=== PATIENT | female | born 1930 | race Caucasian/White ===

== ENCOUNTER 2017-04-27 17:35 | Inpatient (IN) | payer BC, OTHER ==
[2017-04-27] MEDS ORDERED: FAMOTIDINE 20 MG/50 ML IVPB 20 MG/50 ML MG IVPB ONE ×2 (17:48→18:21)
--- NOTE | 2017-04-27 17:48 | PDOC ---
History of Present Illness - General Stated Complaint: STOMACH PAIN/VOMITING Time Seen by Provider: 04/27/17 17:47
[2017-04-27 18:29] VITALS: BMI 21.4
[2017-04-27 18:36] LABS: BASO % 0.5 % (0-2.0); EOS % 0.3 % (0-4.5); HEMATOCRIT 33.8 % (32.4-45.2); HEMOGLOBIN 11.3 GM/dL (10.7-15.3); LYMPH % 8.5 % (8-40); MCH 30.6 pg (25.7-33.7); MCHC 33.3 g/dl (32.0-36.0); MEAN CELL VOLUME 91.8 fl (80-96); MEAN PLT VOLUME 8.5 fl (7.5-11.1); MONO % 5.7 % (3.8-10.2); PLATELET COUNT 140 K/MM3 (134-434); RBC 3.68 M/mm3 (3.60-5.2); RDW 13.2 % (11.6-15.6); WHITE BLOOD COUNT 8.5 K/mm3 (4.0-10.0)
--- NOTE | 2017-04-27 19:07 | CON.GI ---
Consult Consult Specialty:: Gastroenterology Reason for Consultation:: Abdominal pain - History of Present Illness Chief Complaint: Severe epigastric pain and vomiting History of Present Illness: 86F developed severe sharp epigastric pain about 1 hour after eating a lobster salad for lunch. She has been vomiting repeated to the point of dry heaving. She had several formed BMs today. Senses chills. The pain radiates bilaterally into her flanks. She takes NSAIDs rarely - History Source History Provided By: Patient Limitations to Obtaining History: No Limitations - Past Medical History Cardio/Vascular: Yes: HTN, Hyperlipdemia Renal/: Yes: Renal Calculi - Past Surgical History Past Surgical History: Yes: None - Alcohol/Substance Use Hx Alcohol Use: Yes (rare) - Smoking History Smoking history: Never smoked - Social History Usual Living Arrangement: With Spouse ADL: Independent Place of : Other ([place]) History of Recent Travel: No Home Medications - Allergies Allergies/Adverse Reactions: Allergies Allergy/AdvReac Type Severity Reaction Status Date / Time No Known Allergies Allergy Verified 04/27/17 18:16 - Home Medications Home Medications: Ambulatory Orders Atorvastatin Ca [Lipitor] 0 mg PO HS 04/27/17 Home Medications (free text): take a blood pressure medication every other day but cannot identify it Review of Systems - Review of Systems Constitutional: reports: Chills Eyes: reports: No Symptoms HENT: reports: No Symptoms Neck: reports: No Symptoms Cardiovascular: reports: No Symptoms Respiratory: reports: No Symptoms Gastrointestinal: reports: Abdominal Pain, Vomiting Genitourinary: reports: No Symptoms Musculoskeletal: reports: Back Pain Neurological: reports: No Symptoms Physical Exam-GI Vital Signs: Vital Signs Temperature 98.5 F 04/27/17 18:15 Pulse Rate 60 04/27/17 18:15 Respiratory Rate 18 04/27/17 18:15 Blood Pressure 174/70 04/27/17 18:15 O2 Sat by Pulse Oximetry (%) 100 04/27/17 18:15 CBC,CMP WBC 8.5 K/mm3 (4.0-10.0) 04/27/17 18:18 RBC 3.68 M/mm3 (3.60-5.2) 04/27/17 18:18 Hgb 11.3 GM/dL (10.7-15.3) 04/27/17 18:18 Hct 33.8 % (32.4-45.2) 04/27/17 18:18 MCV 91.8 fl (80-96) 04/27/17 18:18 MCH 30.6 pg (25.7-33.7) 04/27/17 18:18 MCHC 33.3 g/dl (32.0-36.0) 04/27/17 18:18 RDW 13.2 % (11.6-15.6) 04/27/17 18:18 Plt Count 140 K/MM3 (134-434) 04/27/17 18:18 MPV 8.5 fl (7.5-11.1) 04/27/17 18:18 Neutrophils % 85.0 % (42.8-82.8) H 04/27/17 18:18 Lymphocytes % 8.5 % (8-40) 04/27/17 18:18 Monocytes % 5.7 % (3.8-10.2) 04/27/17 18:18 Eosinophils % 0.3 % (0-4.5) 04/27/17 18:18 Basophils % 0.5 % (0-2.0) 04/27/17 18:18 CBC,CMP WBC 8.5 K/mm3 (4.0-10.0) 04/27/17 18:18 RBC 3.68 M/mm3 (3.60-5.2) 04/27/17 18:18 Hgb 11.3 GM/dL (10.7-15.3) 04/27/17 18:18 Hct 33.8 % (32.4-45.2) 04/27/17 18:18 MCV 91.8 fl (80-96) 04/27/17 18:18 MCH 30.6 pg (25.7-33.7) 04/27/17 18:18 MCHC 33.3 g/dl (32.0-36.0) 04/27/17 18:18 RDW 13.2 % (11.6-15.6) 04/27/17 18:18 Plt Count 140 K/MM3 (134-434) 04/27/17 18:18 MPV 8.5 fl (7.5-11.1) 04/27/17 18:18 Neutrophils % 85.0 % (42.8-82.8) H 04/27/17 18:18 Lymphocytes % 8.5 % (8-40) 04/27/17 18:18 Monocytes % 5.7 % (3.8-10.2) 04/27/17 18:18 Eosinophils % 0.3 % (0-4.5) 04/27/17 18:18 Basophils % 0.5 % (0-2.0) 04/27/17 18:18 Sodium 139 mmol/L (136-145) 04/27/17 18:30 Potassium 3.5 mmol/L (3.5-5.1) 04/27/17 18:30 Chloride 103 mmol/L (98-107) 04/27/17 18:30 Carbon Dioxide 28 mmol/L (21-32) 04/27/17 18:30 Anion Gap 8 (8-16) 04/27/17 18:30 BUN 29 mg/dL (7-18) H 04/27/17 18:30 Creatinine 0.8 mg/dL (0.55-1.02) 04/27/17 18:30 Creat Clearance w eGFR > 60 (>60) 04/27/17 18:30 Random Glucose 155 mg/dL (74-106) H 04/27/17 18:30 Calcium 8.6 mg/dL (8.5-10.1) 04/27/17 18:30 Total Bilirubin 0.3 mg/dL (0.2-1.0) 04/27/17 18:30 AST 21 U/L (15-37) 04/27/17 18:30 ALT 15 U/L (12-78) 04/27/17 18:30 Alkaline Phosphatase 68 U/L (45-117) 04/27/17 18:30 Total Protein 6.6 g/dl (6.4-8.2) 04/27/17 18:30 Albumin 3.7 g/dl (3.4-5.0) 04/27/17 18:30 Lipase 202 U/L (73-393) 04/27/17 18:30 Constitutional: Yes: Moderate Distress Eyes: Yes: Conjunctiva Clear HENT: Yes: Normocephalic Neck: Yes: Supple Cardiovascular: Yes: Regular Rate and Rhythm Respiratory: Yes: CTA Bilaterally Gastrointestinal Inspection: Yes: Distention ...Auscultate: Yes: Hypoactive Bowel Sounds ...Palpate: Yes: Guarding, Tenderness (diffusely, worse in epigastrium) ...Rectal Exam: Yes: Guaiac Negative, Sphincter Tone Normal Edema: No Peripheral Pulses WNL: Yes Neurological: Yes: Alert, Oriented Labs: CBC, BMP 04/27/17 18:18 Problem List - Problems (1) Abdominal pain Assessment/Plan: Although the picture of vomiting and pain after eating suggests food poisoning her abdominal findings suggest peritonitis due to a perforated viscus and she requires a stat CT scan ( await chemistries assessing renal function and LFTs). Potential etiologies include a perforated ulcer, diverticulitis, appendicitis, cholecystitis among others. She may alternatively have renal colic. Would keep NPO until CT is read. I discussed the case with Dr. Cuenca Code(s): R10.9 - UNSPECIFIED ABDOMINAL PAIN (2) Vomiting Code(s): R11.10 - VOMITING, UNSPECIFIED (3) History of nephrolithiasis Code(s): Z87.442 - PERSONAL HISTORY OF URINARY CALCULI (4) Hypertension Code(s): I10 - ESSENTIAL (PRIMARY) HYPERTENSION (5) Hyperlipidemia Code(s): E78.5 - HYPERLIPIDEMIA, UNSPECIFIED Assessment/Plan NPO Stat CT scan IV fluids PPI Further recommendations based on CT results
[2017-04-27 19:08] LABS: ALBUMIN 3.7 g/dl (3.4-5.0); ALK PHOS 68 U/L (45-117); ANION GAP 8 (8-16); BILIRUBIN,TOTAL 0.3 mg/dL (0.2-1.0); BLOOD UREA NITROGEN 29 mg/dL (7-18); CALCIUM 8.6 mg/dL (8.5-10.1); CHLORIDE 103 mmol/L (98-107); CO2 28 mmol/L (21-32); CREATININE 0.8 mg/dL (0.55-1.02); GLUCOSE,RANDOM 155 mg/dL (74-106); POTASSIUM 3.5 mmol/L (3.5-5.1); SGOT/AST 21 U/L (15-37); SGPT/ALT 15 U/L (12-78); SODIUM 139 mmol/L (136-145); TOT PROT 6.6 g/dl (6.4-8.2)
[2017-04-27 19:10] LABS: LIPASE 202 U/L (73-393)
[2017-04-27] MEDS ORDERED: SODIUM CHLORIDE 500 ML IV STA (19:13)
[2017-04-27] MEDS ORDERED: HYDROmorphone HCL CARPU-JECT 1 MG/1 ML DISP.SYRIN IVPUSH ONE (19:14)
--- NOTE | 2017-04-27 19:27 | PDOC ---
History of Present Illness - General Chief Complaint: Pain, Acute Stated Complaint: STOMACH PAIN/VOMITING Time Seen by Provider: 04/27/17 17:47 History Source: Patient Exam Limitations: No Limitations - History of Present Illness Initial Comments: 04/27/17 19:23 86F with no signf. pmh presents with multiple episode of vomiting and abd pain 30min after she ate lobster salad bought on Thursday. She states tjhat the pain is now also present in her lower back. No dysuria. History of kidney stones 10 years ago Past History - Past Medical History Allergies/Adverse Reactions: Allergies Allergy/AdvReac Type Severity Reaction Status Date / Time No Known Allergies Allergy Verified 04/27/17 18:16 Home Medications: Ambulatory Orders Atorvastatin Ca [Lipitor] 0 mg PO HS 04/27/17 COPD: No Disorders: Yes (KIDNEY STONES.) HTN: Yes Hypercholesterolemia: Yes - Suicide/Smoking/Psychosocial Hx Smoking History: Never smoked Hx Alcohol Use: Yes (rare) Drug/Substance Use Hx: No Substance Use Type: None Review of Systems - Review of Systems Able to Perform ROS?: Yes Is the patient limited Kazakh proficient: No Constitutional: No: Symptoms Reported HEENTM: No: Symptoms Reported Respiratory: No: Symptoms reported Cardiac (ROS): No: Symptoms Reported ABD/GI: Yes: See HPI : No: Symptoms Reported Musculoskeletal: Yes: Back Pain Neurological: No: Symptoms reported Hematologic/Lymphatic: No: Other All Other Systems: Reviewed and Negative *Physical Exam - Vital Signs Last Vital Signs Temp Pulse Resp BP Pulse Ox 98.5 F 60 18 174/70 100 04/27/17 18:15 04/27/17 18:15 04/27/17 18:15 04/27/17 18:15 04/27/17 18:15 - Physical Exam General Appearance: Yes: Nourished, Appropriately Dressed, Moderate Distress, Thin HEENT: positive: EOMI, BRANDON, Normal ENT Inspection Neck: negative: Tender Respiratory/Chest: positive: Lungs Clear, Normal Breath Sounds. negative: Chest Tender, Respiratory Distress Cardiovascular: positive: Regular Rhythm, Regular Rate, S1, S2 Gastrointestinal/Abdominal: positive: Tender (epigastric), Flat, Soft, Increased Bowel Sounds Musculoskeletal: positive: CVA Tenderness (R) Integumentary: positive: Normal Color, Dry, Warm Neurologic: positive: Fully Oriented, Alert, Normal Mood/Affect, Normal Response ED Treatment Course - LABORATORY CBC & Chemistry Diagram: 04/27/17 18:18 04/27/17 18:30 - ADDITIONAL ORDERS Additional order review: Laboratory Results 04/27/17 18:30 Sodium 139 Potassium 3.5 Chloride 103 Carbon Dioxide 28 Anion Gap 8 BUN 29 H Creatinine 0.8 Creat Clearance w eGFR > 60 Random Glucose 155 H Calcium 8.6 Total Bilirubin 0.3 AST 21 ALT 15 Alkaline Phosphatase 68 Total Protein 6.6 Albumin 3.7 Lipase 202 04/27/17 18:18 RBC 3.68 MCV 91.8 MCHC 33.3 RDW 13.2 MPV 8.5 Neutrophils % 85.0 H Lymphocytes % 8.5 Monocytes % 5.7 Eosinophils % 0.3 Basophils % 0.5 - Medications Given in the ED: ED Medications Discontinued Medications Generic Name Dose Route Start Last Admin Trade Name Freq PRN Reason Stop Dose Admin Famotidine/Sodium Chloride 20 mg in 50 mls @ 100 mls/hr 04/27/17 17:48 18:30 Pepcid 20 Mg Premixed Ivpb - IVPB 04/27/17 18:17 100 mls/hr ONCE ONE Administration Medical Decision Making - Medical Decision Making 04/27/17 19:34 food intoxication vs nephrolithiasis vs SBO Basic labs, urine, Ct abd pending. Fluids and famotidine, dilaudid for pain 04/27/17 19:34 04/27/17 22:15 Imaging electronic scale assembler and tester spoke to me about her CT abdomen with contrast which showed an ileus SBO with possible close loop. Dr Velasquez notified. Patient comfortable enough, not distended enough to need an NG tube as per Dr Naik. Patient admitted to Med/Surg under Dr. Cool. 04/27/17 22:19 Labs within normal limits, except pre-renal. Normal lactate. 04/27/17 22:20 *DC/Admit/Observation/Transfer Diagnosis at time of Disposition: Small bowel obstruction - Discharge Dispostion Admit: Yes - Referrals Referrals: Favian Castellano MD [Primary Care Provider] - - Patient Instructions - Post Discharge Activity
[2017-04-27] MEDS ORDERED: HYDROmorphone HCL CARPU-JECT 2 MG/1 ML DISP.SYRIN ONE (19:35)
--- NOTE | 2017-04-27 20:00 | PDOC ---
Attending Attestation - Resident Resident Name: BernabeAustin - ED Attending Attestation I have performed the following: I have examined & evaluated the patient, The case was reviewed & discussed with the resident, I agree w/resident's findings & plan, Exceptions are as noted - Medical Decision Making ct scan completed pt admitted to med/srug IMP sbo 04/27/17 22:18 <Anastasiya Cuencah - Last Filed: 04/27/17 22:18> - HPI HPI: 04/27/17 20:04 86 yo F with history of hypertension, hyperlipidemia, who presents to the ED complaining of diffuse abdominal pain and vomiting that began this afternoon. Patient reports she consumed 3-day old lobster salad this evening prior to the onset of her symptoms. She is now vomiting to the point of dry heaving. She reports her abdominal pain radiates to the flank. No fever or chills. No diarrhea or constipation. No chest pain or shortness of breath. - Physicial Exam PE: 04/27/17 20:06 GENERAL: Well developed, well nourished. Awake and alert. No acute distress. NECK: Supple. Full ROM. No JVD. Carotid pulses 2+ and symmetric, without bruits. No thyromegaly. No lymphadenopathy. CARDIOVASCULAR: Regular rate and rhythm. No murmurs, rubs, or gallops. Distal pulses are 2+ and symmetric. PULMONARY: No evidence of respiratory distress. Lungs clear to auscultation bilaterally. No wheezing, rales or rhonchi. ABDOMINAL: Abdomen is diffusely tender to palpation. Negative McBurney's point tenderness. Negative Roblero's. Soft. Non-distended. No rebound or guarding. No organomegaly. - Medical Decision Making 04/27/17 22:33 CT of abdomen and pelvis, reviewed and interpreted by Imaging Retail Office Associate. Impression: 1. Findings highly suspicious for closed loop small bowel obstruction, probably in the ileus. 2. Small amount of fluid in the right lower quadrant and pelvis. 3. Probable liver cysts. 4. Bilateral renal cortical cysts. 5. Mild dilatation of the intrahepatic biliary ducts. Abdominal ultrasound can be performed for further evaluation. 6. Probable bilateral ovarian cysts, larger on the right. Pelvic ultrasound is recommended. THIS DOCUMENT HAS BEEN ELECTRONICALLY SIGNED Miguelito Mora MD Documentation prepared by Monique Brennan, acting as medical services assistant for Anastasiya Cuenca MD. <Monique Brennan - Last Filed: 04/27/17 22:33>
--- NOTE | 2017-04-27 21:54 | PN ---
Teaching Attending Note Name of Resident: Mark Roberts ATTENDING PHYSICIAN STATEMENT I saw and evaluated the patient. I reviewed the resident's note and discussed the case with the resident. I agree with the resident's findings and plan as documented. SUBJECTIVE: 86 F with hx. of HTN and HLD who presents with epigastric pain. Pain is decribed as sharp in nature and started about noon, one hour post lunch. Has associated nausea and vomiting. Pain does radiated to both flanks. No chest pain or pressure. Denies any more vomiting and states she has had recent BM X2 today (non-bloody, well- formed) OBJECTIVE: Physical: VS: Vital Signs Period Temp Pulse Resp BP Sys/Ivey Pulse Ox Last 24 Hr 98.5 F 60 18 174/70 100 GEN: NAD, resting in bed, able to speak full sentences HEENT: NCAT, PERRL, throat without erythema or exudates CARD: RRR S1, S2 RESP: CTAB ABD: BSx4, Mild distension EXT: - C/C/E CBCD WBC 8.5 K/mm3 (4.0-10.0) 04/27/17 18:18 RBC 3.68 M/mm3 (3.60-5.2) 04/27/17 18:18 Hgb 11.3 GM/dL (10.7-15.3) 04/27/17 18:18 Hct 33.8 % (32.4-45.2) 04/27/17 18:18 MCV 91.8 fl (80-96) 04/27/17 18:18 MCHC 33.3 g/dl (32.0-36.0) 04/27/17 18:18 RDW 13.2 % (11.6-15.6) 04/27/17 18:18 Plt Count 140 K/MM3 (134-434) 04/27/17 18:18 MPV 8.5 fl (7.5-11.1) 04/27/17 18:18 CMP Sodium 139 mmol/L (136-145) 04/27/17 18:30 Potassium 3.5 mmol/L (3.5-5.1) 04/27/17 18:30 Chloride 103 mmol/L (98-107) 04/27/17 18:30 Carbon Dioxide 28 mmol/L (21-32) 04/27/17 18:30 Anion Gap 8 (8-16) 04/27/17 18:30 BUN 29 mg/dL (7-18) H 04/27/17 18:30 Creatinine 0.8 mg/dL (0.55-1.02) 04/27/17 18:30 Creat Clearance w eGFR > 60 (>60) 04/27/17 18:30 Random Glucose 155 mg/dL (74-106) H 04/27/17 18:30 Calcium 8.6 mg/dL (8.5-10.1) 04/27/17 18:30 Total Bilirubin 0.3 mg/dL (0.2-1.0) 04/27/17 18:30 AST 21 U/L (15-37) 04/27/17:30 ALT 15 U/L (12-78) 04/27/17 18:30 Alkaline Phosphatase 68 U/L (45-117) 04/27/17 18:30 Total Protein 6.6 g/dl (6.4-8.2) 04/27/17:30 Albumin 3.7 g/dl (3.4-5.0) 04/27/17 18:30 CT -abdomen -> Highly suspicious foir closed loop small bowel obstruction, probably in the ileus. Small amount of fluid in the RLQ and pelvis. Probable liver cysts. BL renal cortical cysts. Mild dilatation of the intrahepatic micheal ducts. Probable BL ovarian cysts. 0.5 cm non-calcified nodule in RLL. similar appearing non- calcified nodule in RML. Mild dilatation of intrahepatic biliary ducts. Bilateral renal cortical cysts. largest Mid- lower pole of kidney 8.9X7.6cm. Right adenxal cyst 3X3.1 cm. 2 small cysts in left adenexa. Pelvic us. ASSESSMENT AND PLAN: 86 F with hx. of HTN and HLD who presents with epigastric pain, found to have dilated loops of small bowel 1.) Small Bowel Obstruction - NPO - IVF - Type and Screen - Coags - GI consult appreciated - Sx. Consult - If continued vomiting, ngt, pt. does not want at this time 2.) Dilated Bile Ducts - Abd Us 2.) Nodules Lung - CT Chest- can be done out pt. 3.) Adenxal Cysts - Pelvis US - Follow outpt. w. shear tender 4.) HTN - C/W Home meds 5.) HLD - C/W home meds 6.) Dvt Ppx - SCDs Place in med-sx
[2017-04-27] MEDS: ONDANSETRON 4 MG/2 ML VIAL IVPB PRN (21:56)
[2017-04-27] MEDS ORDERED: ONDANSETRON 4 MG/2 ML VIAL ONE (21:56)
--- NOTE | 2017-04-27 22:00 | PN ---
Progress Note (short form) - Note Progress Note: GI Note: Resting comfortably after hydrocodone. Vomiting and pain have subsided. CT Scan reveals a large left renal cyst but no rupture. There is a loop of small bowel in the pelvis with slight wall thickening but no obvious obstruction. No perforations seen. GB is distended. PE: Abd: BS active, nontender at present Plan: Admit to observe for possible loop of compromised bowel, cholecystitis vs food poisoning Plan: IV fluids Surgical consultation GB sonogram Problem List - Problems (1) Abdominal pain Code(s): R10.9 - UNSPECIFIED ABDOMINAL PAIN (2) Vomiting Code(s): R11.10 - VOMITING, UNSPECIFIED (3) History of nephrolithiasis Code(s): Z87.442 - PERSONAL HISTORY OF URINARY CALCULI (4) Hypertension Code(s): I10 - ESSENTIAL (PRIMARY) HYPERTENSION (5) Hyperlipidemia Code(s): E78.5 - HYPERLIPIDEMIA, UNSPECIFIED
[2017-04-27] MEDS: PANTOPRAZOLE SODIUM 40 MG VIAL IVPB SCH (22:02)
[2017-04-27] MEDS ORDERED: DEXTROSE 5%-0.45% SALINE 1,000 ML IV SCH (22:15)
[2017-04-27] MEDS ORDERED: D5-1/2NS+40 MEQ KCL - 40 MEQ/1,000 ML INFUS.BAG IV SCH (22:15)
[2017-04-27] MEDS ORDERED: PANTOPRAZOLE SODIUM 40 MG/100 ML BAG IVPB ONE (22:43)
[2017-04-27] MEDS ORDERED: ONDANSETRON 4 MG/2 ML VIAL IVPUSH PRN (23:06)
[2017-04-27] MEDS ORDERED: HYDROmorphone HCL CARPU-JECT 2 MG/1 ML DISP.SYRIN IVPUSH PRN (23:06)
--- NOTE | 2017-04-27 23:35 | HP ---
CHIEF COMPLAINT: Diffuse Abdominal pain + Vomiting PCP: Favian Castellano HISTORY OF PRESENT ILLNESS: 86 y/o female, accompanied by her daughter, with a PMHx of recently diagnosed HTN, HLD, and Kidney stones 10 years ago presents with 10/10 diffuse abdominal pain. This afternoon, 30 minutes after patient consumed lobster salad that on 04/24, she experienced abdominal pain followed by 3 episodes of nonbloody, nonbilious, watery vomiting and 2 loose, nonbloody BMs. She was unable to find a position of comfort due to pain. Pepto-bismol did not relived pain and her daughter brought her to the ED. Patient continued to experience abdominal pain and 4-5 episodes of vomiting until she received Dilaudid in the ED. Has not passed gas since arrival. Currently, her abdominal pain is 0/10. She regularly consumes seafood and denies any seafood allergy. Denies any hx of food poisoning. Denies any hx of abdominal surgeries. Denies any Fevers, chills , chest pain, SOB, dysuria or hematuria. ER course was notable for: (1)No WBC, fever (2)Abdominal CT + for likely SBO (3) Recent Travel: PAST MEDICAL HISTORY: Hyperlipidemia Hypertension - recently diagnosed. Unknown htn medication. Renal Calculi (10 years ago; passed without intervention) Macular degeneration PAST SURGICAL HISTORY: Bunion Surgery Social History: Smoking: Nonsmoker Alcohol: Occasional Drugs: None Family History: Sister with Ovarian cancer, Heart issues but patient unsure of which ones Allergies Hay fever NKDA HOME MEDICATIONS: Home Medications Medication Instructions Recorded Atorvastatin Ca [Lipitor] 40 mg PO HS 04/27/17 REVIEW OF SYSTEMS CONSTITUTIONAL: Absent: fever, chills, diaphoresis, generalized weakness, malaise, loss of appetite, weight change HEENT: Absent: rhinorrhea, nasal congestion, throat pain, throat swelling, difficulty swallowing, mouth swelling, ear pain, eye pain, visual changes CARDIOVASCULAR: Absent: chest pain, syncope, palpitations, irregular heart rate, lightheadedness , peripheral edema RESPIRATORY: Absent: cough, shortness of breath, dyspnea with exertion, orthopnea, wheezing, stridor, hemoptysis GASTROINTESTINAL: +abdominal pain, N/V Absent: diarrhea, constipation, melena, hematochezia GENITOURINARY: Absent: dysuria, frequency, urgency, hesitancy, hematuria, flank pain, genital pain MUSCULOSKELETAL: Absent: myalgia, arthralgia, joint swelling, back pain, neck pain SKIN: Absent: rash, itching, pallor HEMATOLOGIC/IMMUNOLOGIC: Absent: easy bleeding, easy bruising, lymphadenopathy, frequent infections ENDOCRINE: Absent: unexplained weight gain, unexplained weight loss, heat intolerance, cold intolerance NEUROLOGIC: Absent: headache, focal weakness or paresthesias, dizziness, unsteady gait, seizure, mental status changes, bladder or bowel incontinence PSYCHIATRIC: Absent: anxiety, depression, suicidal or homicidal ideation, hallucinations. PHYSICAL EXAMINATION Vital Signs - 24 hr 04/27/17 18:15 Temperature 98.5 F Pulse Rate 60 Respiratory 18 Rate Blood Pressure 174/70 O2 Sat by Pulse 100 Oximetry (%) GENERAL: Awake, alert, and fully oriented, in no acute distress. HEAD: Normal with no signs of trauma. EYES: Pupils equal, round and reactive to light, extraocular movements intact, sclera anicteric, conjunctiva clear. No lid lag. EARS, NOSE, THROAT: Ears normal, nares patent, oropharynx clear without exudates. Dry oropharynx. NECK: Normal range of motion, supple without lymphadenopathy, JVD, or masses. LUNGS: Breath sounds equal, clear to auscultation bilaterally. No wheezes, and no crackles. No accessory muscle use. HEART: Regular rate and rhythm, normal S1 and S2 without murmur, rub or gallop. ABDOMEN: Soft, Distended, normoactive bowel sounds, no guarding, no rebound, no masses. Tender to palpation in both lower quadrants and Hypogastric region. No hepatomegaly or splenomegaly. Negative murphys sign, negative rovsings sign, negative murphys punch, No shifting dullness, No CVA tenderness MUSCULOSKELETAL: Normal range of motion at all joints. No bony deformities or tenderness. No CVA tenderness. UPPER EXTREMITIES: 2+ pulses, warm, well-perfused. No cyanosis. No clubbing. No peripheral edema. LOWER EXTREMITIES: 2+ pulses, warm, well-perfused. No calf tenderness. No peripheral edema. NEUROLOGICAL: Cranial nerves II-XII intact. Normal speech. PSYCHIATRIC: Cooperative. Good eye contact. Appropriate mood and affect. SKIN: Warm, dry, normal turgor, no rashes or lesions noted, normal capillary refill. Laboratory Results - last 24 hr CBC, BMP 04/27/17 18:18 04/27/17 18:30 04/27/17 04/27/17 04/27/17 18:18 18:30 20:10 WBC 8.5 RBC 3.68 Hgb 11.3 Hct 33.8 MCV 91.8 MCH 30.6 MCHC 33.3 RDW 13.2 Plt Count 140 MPV 8.5 Neutrophils % 85.0 H Lymphocytes % 8.5 Monocytes % 5.7 Eosinophils % 0.3 Basophils % 0.5 Sodium 139 Potassium 3.5 Chloride 103 Carbon Dioxide 28 Anion Gap 8 BUN 29 H Creatinine 0.8 Creat Clearance w eGFR > 60 Random Glucose 155 H Lactic Acid 1.1 Calcium 8.6 Total Bilirubin 0.3 AST 21 ALT 15 Alkaline Phosphatase 68 Total Protein 6.6 Albumin 3.[address] -abdomen -> Highly suspicious for closed loop small bowel obstruction, probably in the ileum. Small amount of fluid in the RLQ and pelvis. Probable liver cysts. BL renal cortical cysts. Mild dilatation of the intrahepatic micheal ducts. Probable BL ovarian cysts. EKG - pending ASSESSMENT/PLAN: 86 y/o female, accompanied by her daughter, with a PMHx of recently diagnosed HTN, HLD, and Kidney stones 10 years ago presents with 10/10 diffuse abdominal pain. #Small Bowel Obstruction - NPO - D5-1/2 NS @ 125mls/hr IV - Type and screen - Coags - GI Consult, Recs appreciated - Surgery Consult - Consider NG Tube if vomiting continues #Dilated Bile Ducts - Consider RUQ US # Lung Nodules - CT Chest to be done as outpatient #Adnexal Cysts - Pelvis US - Follow up outpatient with Primary Substance Abuse Counselor # HTN - f/u with pt pharmacy. Pt unsure of medication name -Continue Home meds #HLD - Continue Home dose Atrovastatin 40mg PO Daily PPX - DVT - SCDs - GI -Protonix IV FEN - Fluids: D5-1/2 NS @ 125mls/hr IV - Electrolytes: WNL - Nutrition: NPO Plan discussed with attending, Dr. Silvina Roberts, PGY1 Visit type - Emergency Visit Emergency Visit: Yes ED Registration Date: 04/27/17 Care time: The patient presented to the Emergency Department on the above date and was hospitalized for further evaluation of their emergent condition. - New Patient This patient is new to me today: Yes Date on this admission: 04/28/17 - Critical Care Critical Care patient: No
[2017-04-28 06:31] LABS: BASO % 0.1 % (0-2.0); HEMATOCRIT 31.8 % (32.4-45.2); HEMOGLOBIN 10.6 GM/dL (10.7-15.3); MCH 30.8 pg (25.7-33.7); MCHC 33.5 g/dl (32.0-36.0); MEAN CELL VOLUME 91.9 fl (80-96); MEAN PLT VOLUME 8.5 fl (7.5-11.1); MONO % 9.7 % (3.8-10.2); NEUT % 81.2 % (42.8-82.8); PLATELET COUNT 151 K/MM3 (134-434); RBC 3.46 M/mm3 (3.60-5.2); RDW 13.6 % (11.6-15.6); WHITE BLOOD COUNT 6.3 K/mm3 (4.0-10.0)
[2017-04-28] MEDS: ONDANSETRON 4 MG/2 ML VIAL IVPB PRN (06:34)
[2017-04-28] MEDS ORDERED: ONDANSETRON 4 MG/2 ML VIAL ONE (06:36)
[2017-04-28 06:46] LABS: INR 1.19 (0.82-1.09); PROTHROMBIN TIME (PATIENT) 13.4 SEC (9.98-11.88)
[2017-04-28 06:52] LABS: MAGNESIUM 1.8 mg/dL (1.8-2.4)
[2017-04-28 06:59] LABS: AMYLASE 47 U/L (25-115); ANION GAP 6 (8-16); BILIRUBIN,TOTAL 0.5 mg/dL (0.2-1.0); BLOOD UREA NITROGEN 22 mg/dL (7-18); CHLORIDE 104 mmol/L (98-107); CO2 28 mmol/L (21-32); CREATININE 0.8 mg/dL (0.55-1.02); GLUCOSE,RANDOM 123 mg/dL (74-106); POTASSIUM 3.5 mmol/L (3.5-5.1); SGOT/AST 17 U/L (15-37); SGPT/ALT 14 U/L (12-78); SODIUM 138 mmol/L (136-145)
[2017-04-28 07:01] LABS: ALK PHOS 62 U/L (45-117); TOT PROT 5.8 g/dl (6.4-8.2)
[2017-04-28 07:05] LABS: LIPASE 316 U/L (73-393)
[2017-04-28] MEDS ORDERED: POTASSIUM CHLORIDE 30 MEQ in SODIUM CHLORIDE 300 ML IVPB ONE (08:00)
[2017-04-28] MEDS ORDERED: KCL 10 MEQ IVPB 30 MEQ/300 ML INFUS.BAG IVPB ONE (08:46)
[2017-04-28] MEDS ORDERED: KCL 10 MEQ IVPB 10 MEQ/100 ML INFUS.BAG IVPB SCH (11:15)
[2017-04-28] MEDS: DEXTROSE 5%-0.45% SALINE 1,000 ML IV SCH ×2 (11:21→11:24)
[2017-04-28] MEDS: PANTOPRAZOLE SODIUM 40 MG VIAL IVPB SCH ×2 (11:24→21:43)
--- NOTE | 2017-04-28 12:22 | PN ---
GI Progress Note Subjective: Daughters present at bedside No acute events. Ms. Yacney describes improved abdominal pain. No IV analgesia since 8pm last night. Described having BM yesterday - Objective Vital Signs: Vital Signs Temperature 98.5 F 04/27/17 18:15 Pulse Rate 60 04/27/17 18:15 Respiratory Rate 18 04/27/17 18:15 Blood Pressure 174/70 04/27/17 18:15 O2 Sat by Pulse Oximetry (%) 98 04/28/17 07:36 Constitutional: Calm Eyes: No: Sclera Icterus Cardiovascular: Yes: Bradycardia, Murmur (+ 2/6 systolic murmur at the RSB) Respiratory: Yes: CTA Bilaterally Gastrointestinal Inspection: Yes: Other (softly protuberant) ...Auscultate: Yes: Hyperactive Bowel Sounds ...Palpate: Yes: Soft, Tenderness (Mild TTP mid/lower abdomen). No: Guarding, Tenderness, Rebound Edema: No (No LE edema) Neurological: Yes: Alert, Oriented Labs: CBC, BMP 04/28/17 05:50 04/28/17 05:50 INR, PTT INR 1.19 (0.82-1.09) H 04/28/17 05:50 Hepatic Panel Total Bilirubin 0.5 mg/dL (0.2-1.0) D 04/28/17 05:50 AST 17 U/L (15-37) 04/28/17 05:50 ALT 14 U/L (12-78) 04/28/17 05:50 Alkaline Phosphatase 62 U/L (45-117) 04/28/17 05:50 Albumin 3.0 g/dl (3.4-5.0) L 04/28/17 05:50 - ....Imaging X-ray: Other (mod fecal retention in ascending colon) Problem List - Problems (1) Small bowel obstruction Assessment/Plan: vs. resolved acute enteritis No evidence of acute cholecystitis Continue IV Hydration To be evaluated by surgery Supportive measures Code(s): K56.609 - UNSP INTESTNL OBST, UNSP TO PARTIAL VERSUS COMPLETE OBST
--- NOTE | 2017-04-28 13:06 | PN ---
Progress Note (short form) - Note Progress Note: surgery pt seen and examined. full consult dictated. 86f with virgin abd developed abd pain, n/v/d after eating lobster, with ct without oral contrast showing possible psbo with closed loop obstuction. pt now well with benign exam. suggest trial of liquids. if successful can d/c home. if not, would place ngt and repeat ct with oral contrast.
--- NOTE | 2017-04-28 13:26 | CONS ---
DATE OF CONSULTATION: 04/28/2017 REASON FOR CONSULTATION: Small-bowel obstruction. This is an emergency room consultation at the request of Dr. Patrick Velasquez. BRIEF HISTORY: This is an 86-year-old female who was eating possibly contaminated lobster, developed severe abdominal pain, nausea, vomiting and diarrhea. Because of this persistent pain, she came to the emergency room where she had a CAT scan of her abdomen and pelvis which showed distended loops of small bowel within the pelvis suspicious for a partial obstruction. The radiologist also opined that there could be a closed loop obstruction as well. There was a small amount of free fluid in the right lower quadrant and pelvis as well. The patient was observed in the emergency room, was not given a nasogastric tube for decompression. Overnight she now is pain free, continues to have bowel movement and has no further vomiting. She has never had an operation on her abdomen and her white blood cell count has remained normal without tachycardia. PAST MEDICAL HISTORY: Significant for hypertension, hyperlipidemia and kidney stones. PAST SURGICAL HISTORY: Nil. SOCIAL HISTORY: Positive for occasional alcohol consumption. Negative for tobacco. HOME MEDICATIONS: Include Norvasc and Lipitor. ALLERGIES: She has no known drug allergies. REVIEW OF SYSTEMS: General: Denies fatigue or malaise. Cardiac: Denies chest pain or palpitations. Respiratory: Denies shortness of breath or wheeze. Gastrointestinal: As in HPI. Genitourinary: Denies dysuria. Musculoskeletal: Denies joint pain, joint swelling. Psychiatric: Denies anxiety, depression, hearing voices. PHYSICAL EXAMINATION:General: This is a well-developed, well-nourished 86-year-old female in no distress. Vital Signs: She is currently febrile at 100.0. Her vital signs are otherwise stable. HEENT: Her head is normocephalic. Her sclerae are anicteric. Neck: Supple. Chest: Clear. Abdomen: Soft, nontender, nondistended. There are no surgical scars. Extremities: Have trace edema. LABORATORY DATA: On review of her laboratory, white blood cell count is normal at 6.3. There is no shift today. Her chemistries have an elevated lactic acid of 2.2. Her liver function tests are unremarkable. IMAGING: On review of her imaging, her CAT scan is as in HPI. In addition, she had an ultrasound of her abdomen which showed sludge within her gallbladder without thickening, without pericholecystic fluid and without a dilated common bile duct. Patient also had an abdominal x-ray today which is after the CAT scan which is read as unremarkable. ASSESSMENT: This is an 86-year-old female who developed abdominal pain, nausea, vomiting, diarrhea after eating possibly tainted lobster. She now feels better. Abdominal x-ray is benign as well as her abdominal exam. Clinically I suspect she has enteritis which has resolved and I agree with the GI opinion. At this point, the original CAT scan did not have oral contrast and it is difficult to ascertain whether or not she did have a mechanical component to her symptoms, but I find it unlikely. I recommend a trial of liquid diet. If the patient tolerates, she likely can be discharged home. If not, would place a nasogastric tube and would repeat CAT scan with oral contrast. I would allow a minimum of 2 hours for the oral contrast to have time to migrate to the colon. At this point, patient is nontoxic without evidence of bowel compromise. DO MARYAN MONDRAGON/[id number]
[2017-04-28] MEDS ORDERED: amLODIPine BESYLATE 5 MG TABLET (FP) PO SCH ×2 (14:45→15:04)
--- NOTE | 2017-04-28 14:59 | PN ---
Teaching Attending Note Name of Resident: Gideon Vasquez ATTENDING PHYSICIAN STATEMENT I saw and evaluated the patient. I reviewed the resident's note and discussed the case with the resident. I agree with the resident's findings and plan as documented. SUBJECTIVE: no fever or chills. ABd pain improved . No SOB, 3 loose BMs yesterday, non etoday . No SOB or CP . OBJECTIVE: NAD , Awake , cooperative slightly dry MM CV: RRR, 2/6 SM at RUSB, Lungs : CTAB Abd: soft,slightly distended, hyperactive BS but not high pitched. minimal TTP in lower abd . Ext : no edema ASSESSMENT AND PLAN: 86 y/o lady withh/o HTN, nephrolithiasis and HLP who presented with N/V and abd pain/distention , she was found to have distention in small bowel loops 1- Abd pain, N/V: could be due to SBO, or ileus due to enteritis improved . CT scan reviewed. NGT not required last night - cont IVF, for evidence of volume depletion - appreciate GI and Sx help - liquid diet - monitior for flatus and BMs - dc dilaudid - serial Abd exam - UA pending 2- H/O HTN: withhypertensive urgency last night , due to pain. now BP NL . - cont Norvasc 3-L renal cyst: pt and daughter notified of need to follow up for this 4- b/l adnexal cysts: pt and daughter made aware of. need f/u with SENIOR DATA MODELER 5- LUng nodules: also notified pt and family. f/u CT in 6 months 6- Add Heparin sq . Possible dc tomorrow if cont to improve.
--- NOTE | 2017-04-28 15:16 | MSN ---
Progress Note (short form) - Note Progress Note: Subjective: Patient was seen this morning and did not complain of any pain. She states that she vomited at 5am this morning yellow, green vomitus. She is no longer nauseous. She states that she had a bowel movement and passed gas yesterday. Denies: chest pain, SOB, abd pain Objective: Last Vital Signs Temp Pulse Resp BP Pulse Ox 98.3 F 69 20 106/58 95 04/28/17 14:25 04/28/17 14:25 04/28/17 14:25 04/28/17 14:25 04/28/17 12:06 General: patient is pleasant, appears comfortable and in no apparent distress HEENT: normocephalic, atraumatic. PERRLA. EOMI. no lymphadenopathy. Lungs: CTA B/L. No crackles, rhonci. Cardiovascular: Regular rate. 2/6 systolic murmur on 2nd intercostal space on right. Abdomen: soft, distended. normoactive bowel sounds. nontender to light palpation. tender on deep palpation of the hypogastric area. Extremities: 2+ pulses on B/L UE and LE. No edema noted. Imaging: - CR Abd flat & upright 04/28/2017: Moderate amount of fecal debris in the ascending colon. No evidence of pneumoperitoneum, intestinal obstruction. - US abd 04/28/2017: Minimal sludge layering in the gallbladder without sonographic evidence of acute cholecystitis. Minimal ascites in the left upper quadrant. Large left renal simple cyst measuring 9.5 x 4.5 cm and a tiny right renal simple cyst measuring 8 mm. Small right hepatic lobe simple cyst measuring 1 cm. - Chest X-ray 04/28/2017: cardiomegaly. no active pulmonary disease - CT of abd&pelvis w/contrast 04/27/2017: 1. Scattered nodules and calcifications within the lung bases. Prior granulomatous disease is suspected. 2. Distended loops of small bowel within the pelvis suspicious for partial obstruction. This may be a closed loop obstruction. There is also a small amount of free fluid within the right lower quadrant and pelvis. Clinical correlation and follow-up is now recommended. 3. Bilateral ovarian cysts. Pelvic sonographic follow-up recommended. Assessment/ Plan: 86yo F with a hx of nephrolithiasis, HTN and hyperlipidemia who presented with abdominal pain secondary to SBO found on CT or possibly acute gastroenteritis. # Abd pain w/ vomiting - IV Fluids: Dextrose/Sodium Chloride (D5-1/2ns -) 1,000 mls @ 100 mls/hr IV ASDIR BALA - nausea: Ondansetron HCl (Zofran Injection) 8 mg IVPB Q4H PRN - soft diet as tolerated - pending urinalysis - Pantoprazole Sodium (Protonix Iv) 40 mg IVPB BID BALA # HTN last night due to pain. Now within normal limits. - continue Amlodipine Besylate (Norvasc -) 5 mg PO Q48H BALA #HLD - continue home medication of atorvastatin 40mg PO daily #lung nodules - patient and daughter made aware to follow up with CT in 6 mo # renal cyst - patient and daughter made aware to follow up # b/l adnexal cyst - patient and daughter made aware to follow up with HEAT TREAT SUPERVISOR. #FEN/ prophylaxis - F: Dextrose/Sodium Chloride (D5-1/2ns -) 1,000 mls @ 100 mls/hr IV ASDIR BALA - E: K+ repleted - N: soft diet - DVT prophylaxis: Heparin Sodium (Porcine) (Heparin -) 5,000 unit SQ TID BALA
--- NOTE | 2017-04-28 15:49 | PN ---
Physical Exam: SUBJECTIVE: Patient seen and examined. No acute events overnight. Pt states that her abdominal pain has resolved with pain meds. She states that she has minimal nausea with liquids, no diarrhea, no flatus, no BM since yesterday. OBJECTIVE: Vital Signs Period Temp Pulse Resp BP Sys/Ivey Pulse Ox Last 24 Hr 98.3 F-100 F 60-69 18-20 106-174/58-70 95-100 GENERAL: elderly female, lying in bed, AAOx3, NAD HEENT: NC, AT NECK: Trachea midline, full range of motion, supple. LUNGS: Breath sounds equal, clear to auscultation bilaterally, no wheezes, no crackles, no accessory muscle use. HEART: Regular rate and rhythm, S1, S2 without murmur, rub or gallop. ABDOMEN: Soft, nontender, nondistended, normoactive bowel sounds, no guarding, no rebound, no hepatosplenomegaly, no masses. EXTREMITIES: 2+ pulses, warm, well-perfused, no edema. NEUROLOGICAL: Cranial nerves II through XII grossly intact. Normal speech, gait not observed. Laboratory Results - last 24 hr 04/27/17 04/27/17 04/27/17 18:18 18:30 20:10 WBC 8.5 RBC 3.68 Hgb 11.3 Hct 33.8 MCV 91.8 MCH 30.6 MCHC 33.3 RDW 13.2 Plt Count 140 MPV 8.5 Neutrophils % 85.0 H Lymphocytes % 8.5 Monocytes % 5.7 Eosinophils % 0.3 Basophils % 0.5 PT with INR INR Sodium 139 Potassium 3.5 Chloride 103 Carbon Dioxide 28 Anion Gap 8 BUN 29 H Creatinine 0.8 Creat Clearance w eGFR > 60 POC Glucometer Random Glucose 155 H Lactic Acid 1.1 Calcium 8.6 Phosphorus Magnesium Total Bilirubin 0.3 AST 21 ALT 15 Alkaline Phosphatase 68 C-Reactive Protein Total Protein 6.6 Albumin 3.7 Total Amylase Lipase 202 Blood Type Antibody Screen 04/28/17 04/28/17 04/28/17 04:05 05:50 05:50 WBC 6.3 RBC 3.46 L Hgb 10.6 L Hct 31.8 L MCV 91.9 MCH 30.8 MCHC 33.5 RDW 13.6 Plt Count 151 MPV 8.5 Neutrophils % 81.2 Lymphocytes % 9.0 Monocytes % 9.7 Eosinophils % 0.0 D Basophils % 0.1 PT with INR INR Sodium 138 Potassium 3.5 Chloride 104 Carbon Dioxide 28 Anion Gap 6 L BUN 22 H D Creatinine 0.8 Creat Clearance w eGFR > 60 POC Glucometer Random Glucose 123 H D Lactic Acid Calcium 8.0 L Phosphorus Magnesium Total Bilirubin 0.5 D AST 17 ALT 14 Alkaline Phosphatase 62 C-Reactive Protein 0.8 H Total Protein 5.8 L Albumin 3.0 L Total Amylase 47 Lipase 316 Blood Type A POSITIVE Antibody Screen Negative 04/28/17 04/28/17 04/28/17 05:50 05:50 05:50 WBC RBC Hgb Hct MCV MCH MCHC RDW Plt Count MPV Neutrophils % Lymphocytes % Monocytes % Eosinophils % Basophils % PT with INR 13.40 H INR 1.19 H Sodium Potassium Chloride Carbon Dioxide Anion Gap BUN Creatinine Creat Clearance w eGFR POC Glucometer Random Glucose Lactic Acid 2.2 H* Calcium Phosphorus 3.0 Magnesium 1.8 Total Bilirubin AST ALT Alkaline Phosphatase C-Reactive Protein Total Protein Albumin Total Amylase Lipase Blood Type Antibody Screen 04/28/17 04/28/17 11:35 12:00 WBC RBC Hgb Hct MCV MCH MCHC RDW Plt Count MPV Neutrophils % Lymphocytes % Monocytes % Eosinophils % Basophils % PT with INR INR Sodium Potassium Chloride Carbon Dioxide Anion Gap BUN Creatinine Creat Clearance w eGFR POC Glucometer 105 Random Glucose Lactic Acid 1.0 Calcium Phosphorus Magnesium Total Bilirubin AST ALT Alkaline Phosphatase C-Reactive Protein Total Protein Albumin Total Amylase Lipase Blood Type Antibody Screen Active Medications Generic Name Dose Route Start Last Admin Trade Name Freq PRN Reason Stop Dose Admin Amlodipine Besylate 5 mg 04/28/17 15:04 Norvasc - PO Q48H BALA Atorvastatin Calcium 40 mg 04/28/17 22:00 Lipitor - PO HS BALA Heparin Sodium (Porcine) 5,000 unit 04/28/17 22:00 Heparin - SQ TID BALA Hydromorphone HCl 0.5 mg 04/27/17 23:06 Dilaudid Injection - IVPUSH Q4H PRN PAIN Dextrose/Sodium Chloride 1,000 mls @ 100 mls/hr 04/28/17 09:19 04/28/17 11:24 D5-1/2ns - IV Not Given ASDIR BALA Ondansetron HCl 8 mg 04/27/17 19:26 01/02/18 06:34 Zofran Injection IVPB 8 mg Q4H PRN Administration NAUSEA AND/OR VOMITING Pantoprazole Sodium 40 mg 04/27/17 22:00 04/28/17 11:24 Protonix Iv IVPB 40 mg BID BALA Administration ASSESSMENT/PLAN: 86F w/ hx of HTN, HLD, and nephrolithiasis who presented with N/V and abd pain/ distention, and was found to have CT evidence of distention in small bowel loops #Abd pain, N/V: - SBO vs. enteritis. - continue D5-1/2 NS @ 100 cc/hr - GI on board, recs appreciated. Advance diet. If pt can handle, then D/C. If not, get CT abd with po contrast. - soft diet, monitor for tolerability - monitor for flatus and BMs - serial abd exam - f/u UA - lactic acid resolved to 1 - US: no cholecystitis, b/l renal cysts, small hepatic lobe cyst - AXR: moderate fecal debris in ascending colon #HTN - pt had hypertensive urgency last night with BP of 174/70. It has since decreased to 106/58 - continue home norvasc #L renal cyst -pt and daughter notified of need to follow up for this #b/l adnexal cysts -pt and daughter made aware of need f/u with ARCHITECTURAL MODEL MAKER #lung nodules -also notified pt and family. f/u CT in 6 months #FEN/ppx -continue D5-1/2 NS @ 100 cc/hr -K repleted -soft diet -protonix -heparin 5000U TID #Dispo -Possible dc tomorrow if continues to improve Case discussed with attending, Dr. Reece. -Gideon Vasquez MD PGY1 Visit type - Emergency Visit Emergency Visit: Yes ED Registration Date: 04/27/17 Care time: The patient presented to the Emergency Department on the above date and was hospitalized for further evaluation of their emergent condition. - New Patient This patient is new to me today: Yes Date on this admission: 04/28/17 - Critical Care Critical Care patient: No
[2017-04-28] MEDS: ATORVASTATIN CA 40 MG TABLET (FP) PO SCH (21:40)
[2017-04-28] MEDS: HEPARIN NA (PORCINE) 5,000 UNITS/ML 1ML VIAL SQ SCH (21:43)
[2017-04-29] MEDS: DEXTROSE 5%-0.45% SALINE 1,000 ML IV SCH (00:32)
[2017-04-29] MEDS: HEPARIN NA (PORCINE) 5,000 UNITS/ML 1ML VIAL SQ SCH ×3 (05:32→21:06)
[2017-04-29 08:30] LABS: BASO % 0.4 % (0-2.0); HEMATOCRIT 31.4 % (32.4-45.2); HEMOGLOBIN 10.2 GM/dL (10.7-15.3); MCH 29.9 pg (25.7-33.7); MCHC 32.4 g/dl (32.0-36.0); MEAN CELL VOLUME 92.3 fl (80-96); MEAN PLT VOLUME 8.6 fl (7.5-11.1); MONO % 9.3 % (3.8-10.2); NEUT % 69.3 % (42.8-82.8); PLATELET COUNT 133 K/MM3 (134-434); RDW 13.5 % (11.6-15.6); WHITE BLOOD COUNT 7.6 K/mm3 (4.0-10.0)
[2017-04-29 08:48] LABS: ANION GAP 8 (8-16); BILIRUBIN,TOTAL 0.4 mg/dL (0.2-1.0); BLOOD UREA NITROGEN 16 mg/dL (7-18); CALCIUM 8.5 mg/dL (8.5-10.1); CHLORIDE 107 mmol/L (98-107); CO2 27 mmol/L (21-32); CREATININE 0.7 mg/dL (0.55-1.02); GLUCOSE,RANDOM 102 mg/dL (74-106); POTASSIUM 3.3 mmol/L (3.5-5.1); SGOT/AST 22 U/L (15-37); SGPT/ALT 13 U/L (12-78); SODIUM 142 mmol/L (136-145); TOT PROT 5.6 g/dl (6.4-8.2)
[2017-04-29 08:49] LABS: ALK PHOS 57 U/L (45-117)
[2017-04-29] MEDS ORDERED: POTASSIUM CHLORIDE TABS 20 MEQ TABLET.ER (FP) PO ONE ×2 (09:09→14:00)
[2017-04-29] MEDS: PANTOPRAZOLE SODIUM 40 MG VIAL IVPB SCH (10:31)
[2017-04-29] MEDS ORDERED: KCL 10 MEQ IVPB 10 MEQ/100 ML INFUS.BAG IVPB SCH (10:45)
[2017-04-29] MEDS ORDERED: POTASSIUM CHLORIDE 10 MEQ in SODIUM CHLORIDE 100 ML IVPB ONE (11:15)
[2017-04-29] MEDS ORDERED: KCL 10 MEQ IVPB 10 MEQ/100 ML INFUS.BAG IVPB ONE (11:32)
[2017-04-29] MEDS: METRONIDAZOLE 500 MG PREMIXED 500 MG/100 ML MG IVPB SCH ×2 (12:56→18:25)
[2017-04-29] MEDS: CEFTRIAXONE 1 G/50 ML PREMIX 50 ML IVPB SCH (12:57)
--- NOTE | 2017-04-29 12:58 | MSN ---
Progress Note (short form) - Note Progress Note: Subjective: Patient was seen this morning and did not have any complaints. Patient states she is able to pass gas but has not had a bowel movement for 2 days. She says she has been tolerating her soft diet well. Patient denies abdominal pain, nausea/vomiting, chest pain, SOB. Objective: Last Vital Signs Temp Pulse Resp BP Pulse Ox 98.4 F 76 18 115/76 95 04/29/17 08:00 04/29/17 08:00 04/29/17 08:00 04/29/17 08:00 04/29/17 08:47 General: patient is pleasant, appears comfortable and in no apparent distress HEENT: normocephalic, atraumatic. PERRLA. EOMI. no lymphadenopathy. Lungs: CTA B/L. No crackles, rhonci. Cardiovascular: Regular rate. 2/6 systolic murmur on 2nd intercostal space on right. Abdomen: soft, slightly distended. normoactive bowel sounds. very tender to palpation of hypogastric area. Extremities: 2+ pulses on B/L UE and LE. No edema noted. Abnormal Lab Results 04/29/17 04/29/17 07:40 07:40 RBC 3.40 L Hgb 10.2 L Hct 31.4 L Plt Count 133 L Potassium 3.3 L Total Protein 5.6 L Albumin 3.0 L Microbiology 04/27/17 20:10 Urine - Urine - Catheterized Urine Culture - Preliminary Lactose Fermenting Neg Bacilli Imaging: - CR Abd [id number] 04/29/2016: No evidence of pneumoperitoneum and intestinal obstruction - CR Abd flat & upright 04/28/2017: Moderate amount of fecal debris in the ascending colon. No evidence of pneumoperitoneum, intestinal obstruction. - US abd 04/28/2017: Minimal sludge layering in the gallbladder without sonographic evidence of acute cholecystitis. Minimal ascites in the left upper quadrant. Large left renal simple cyst measuring 9.5 x 4.5 cm and a tiny right renal simple cyst measuring 8 mm. Small right hepatic lobe simple cyst measuring 1 cm. - Chest X-ray 04/28/2017: cardiomegaly. no active pulmonary disease - CT of abd&pelvis w/contrast 04/27/2017: 1. Scattered nodules and calcifications within the lung bases. Prior granulomatous disease is suspected. 2. Distended loops of small bowel within the pelvis suspicious for partial obstruction. This may be a closed loop obstruction. There is also a small amount of free fluid within the right lower quadrant and pelvis. Clinical correlation and follow-up is now recommended. 3. Bilateral ovarian cysts. Pelvic sonographic follow-up recommended. Home Medication List Medication Instructions Recorded Confirmed Type Atorvastatin Ca [Lipitor] 40 mg PO HS 04/27/17 04/28/17 History Amlodipine Besylate [Norvasc -] 5 mg PO Q48H 04/28/17 04/28/17 History Assessment / Plan: 86yo F with hx of nephrolithiasis, HTN, hyperlipidemia who presented with vomiting and abdominal pain due to possible SBO found on CT. # Abd pain w/ vomiting - IV Fluids: Dextrose/Sodium Chloride (D5-1/2ns -) 1,000 mls @ 100 mls/hr IV ASDIR BALA - nausea: Ondansetron HCl (Zofran Injection) 8 mg IVPB Q4H PRN - soft diet as tolerated - pending urinalysis. urine culture shows lactose fermenting neg bacili CEFTRIAXONE 1 G/50 ML PREMIX (Ceftriaxone 1 Gm-D5w Bag) 50 mls @ 100 mls/hr IVPB DAILY BALA. Metronidazole (Flagyl 500mg Premixed Ivpb -) 500 mg in 100 mls @ 100 mls/hr IVPB Q8H-IV BALA - Pantoprazole Sodium (Protonix Iv) 40 mg IVPB BID BALA # HTN - continue Amlodipine Besylate (Norvasc -) 5 mg PO Q48H BALA #HLD - continue home medication of atorvastatin 40mg PO daily #lung nodules - patient and daughter made aware to follow up with CT in 6 mo # renal cyst - patient and daughter made aware to follow up # b/l adnexal cyst - patient and daughter made aware to follow up with CHIEF GREEN OFFICER. #FEN/ prophylaxis - F: Dextrose/Sodium Chloride (D5-1/2ns -) 1,000 mls @ 100 mls/hr IV ASDIR BALA - E: K+ repleted - N: soft diet - DVT prophylaxis: Heparin Sodium (Porcine) (Heparin -) 5,000 unit SQ TID BALA
--- NOTE | 2017-04-29 13:21 | EKG ---
Test Reason : Blood Pressure : / mmHG Vent. Rate : 057 BPM Atrial Rate : 057 BPM P-R Int : 170 ms QRS Dur : 090 ms QT Int : 430 ms P-R-T Axes : 023 000 035 degrees QTc Int : 418 ms SINUS BRADYCARDIA OTHERWISE NORMAL ECG NO PREVIOUS ECGS AVAILABLE Confirmed by CORINE PACHECO MD ([id number]) on 04/29/2017 1:21:20 PM Referred By: Confirmed By:CORINE PACHECO MD
--- NOTE | 2017-04-29 13:42 | PN ---
<Gideon Vasquez - Last Filed: 04/29/17 15:24> Physical Exam: SUBJECTIVE: Patient seen and examined. No acute events overnight. Pt reports that she is tolerating her diet well without nausea or emesis. She denies having a BM, but endorses some flatus. She denies abdominal pain, but reports "crampy gas." OBJECTIVE: Vital Signs Period Temp Pulse Resp BP Sys/Ivey Pulse Ox Last 24 Hr 97.7 F-98.4 F 67-78 18-20 106-137/54-77 95-95 GENERAL: elderly female, lying in bed, AAOx3, NAD HEENT: NC, AT NECK: Trachea midline, full range of motion, supple. LUNGS: Breath sounds equal, clear to auscultation bilaterally, no wheezes, no crackles, no accessory muscle use. HEART: Regular rate and rhythm, S1, S2 without murmur, rub or gallop. ABDOMEN: voluntary guarding, markedly tender in suprapubic region, mildly distended EXTREMITIES: 2+ pulses, warm, well-perfused, no edema. NEUROLOGICAL: Cranial nerves II through XII grossly intact. Normal speech, gait not observed. Laboratory Results - last 24 hr 04/29/17 04/29/17 07:40 07:40 WBC 7.6 RBC 3.40 L Hgb 10.2 L Hct 31.4 L MCV 92.3 MCH 29.9 MCHC 32.4 RDW 13.5 Plt Count 133 L MPV 8.6 Neutrophils % 69.3 Lymphocytes % 20.0 D Monocytes % 9.3 Eosinophils % 1.0 D Basophils % 0.4 D Sodium 142 Potassium 3.3 L Chloride 107 Carbon Dioxide 27 Anion Gap 8 BUN 16 D Creatinine 0.7 Creat Clearance w eGFR > 60 Random Glucose 102 Calcium 8.5 Total Bilirubin 0.4 AST 22 D ALT 13 Alkaline Phosphatase 57 Total Protein 5.6 L Albumin 3.0 L Active Medications Generic Name Dose Route Start Last Admin Trade Name Freq PRN Reason Stop Dose Admin Amlodipine Besylate 5 mg 04/28/17 15:04 04/28/17 15:00 Norvasc - PO Not Given Q48H BALA Atorvastatin Calcium 40 mg 04/28/17 22:00 04/28/17 21:40 Lipitor - PO 40 mg HS BALA Administration Heparin Sodium (Porcine) 5,000 unit 04/28/17 22:00 01/03/18 05:32 Heparin - SQ Not Given TID BALA CEFTRIAXONE 1 G/50 ML PREMIX 50 mls @ 100 mls/hr 04/29/17 11:15 04/29/17 12: 57 Ceftriaxone 1 Gm-D5w Bag IVPB 100 mls/hr DAILY BALA Administration Metronidazole 500 mg in 100 mls @ 100 mls/hr 04/29/17 11:15 04/29/17 12:56 Flagyl 500mg Premixed Ivpb - IVPB 100 mls/hr Q8H-IV BALA Administration Pantoprazole Sodium 40 mg 04/29/17 22:00 Protonix - PO BID BALA Potassium Chloride 20 meq 04/29/17 14:00 K-Dur - PO 04/29/17 14:01 ONCE ONE ASSESSMENT/PLAN: 86F w/ hx of HTN, HLD, and nephrolithiasis who presented with N/V and abd pain/ distention, and was found to have CT evidence of distention in small bowel loops #Abd pain, N/V: - SBO vs. enteritis vs. UTI - continue D5-1/2 NS @ 100 cc/hr - GI on board, recs appreciated. currently pt denies n/v, abdominal pain, and is passing flatus. However, she has marked suprapubic tenderess and a mildly distended abdomen. If her symptoms or exam worsen, will obtain CT abdomen with po contrast. - switched to full liquids - monitor for flatus and BMs - serial abd exam -Ucx: >100,000 CFU of E. coli, started ceftriaxone and flagyl #HTN - continue home norvasc #L renal cyst -pt and daughter notified of need to follow up for this #b/l adnexal cysts -pt and daughter made aware of need f/u with MATERIAL SPECIALIST #lung nodules -also notified pt and family. f/u CT in 6 months #FEN/ppx -continue D5-1/2 NS @ 100 cc/hr -K repleted -full liquid -protonix -heparin 5000U TID Case discussed with attending, Dr. Pham. -Gideon Vasquez MD PGY1 Visit type - Emergency Visit Emergency Visit: Yes ED Registration Date: 04/27/17 Care time: The patient presented to the Emergency Department on the above date and was hospitalized for further evaluation of their emergent condition. - New Patient This patient is new to me today: No - Critical Care Critical Care patient: No <Diane Pham - Last Filed: 05/01/17 19:22> Physical Exam: SUBJECTIVE: Patient seen and examined Flagyl was started for possible enteritis .
--- NOTE | 2017-04-29 16:53 | PN ---
Teaching Attending Note Name of Resident: Gideon Vasquez ATTENDING PHYSICIAN STATEMENT I saw and evaluated the patient. I reviewed the resident's note and discussed the case with the resident. I agree with the resident's findings and plan as documented. SUBJECTIVE: Patient feels better with no acute distress. OBJECTIVE: Vital Signs Temperature 97.4 F L 04/29/17 15:12 Pulse Rate 93 H 04/29/17 15:12 Respiratory Rate 18 04/29/17 08:00 Blood Pressure 143/71 04/29/17 15:12 O2 Sat by Pulse Oximetry (%) 95 04/29/17 08:47 CBCD WBC 7.6 K/mm3 (4.0-10.0) 04/29/17 07:40 RBC 3.40 M/mm3 (3.60-5.2) L 04/29/17 07:40 Hgb 10.2 GM/dL (10.7-15.3) L 04/29/17 07:40 Hct 31.4 % (32.4-45.2) L 04/29/17 07:40 MCV 92.3 fl (80-96) 04/29/17 07:40 MCHC 32.4 g/dl (32.0-36.0) 04/29/17 07:40 RDW 13.5 % (11.6-15.6) 04/29/17 07:40 Plt Count 133 K/MM3 (134-434) L 04/29/17 07:40 MPV 8.6 fl (7.5-11.1) 04/29/17 07:40 CMP Sodium 142 mmol/L (136-145) 04/29/17 07:40 Potassium 3.3 mmol/L (3.5-5.1) L 04/29/17 07:40 Chloride 107 mmol/L (98-107) 04/29/17 07:40 Carbon Dioxide 27 mmol/L (21-32) 04/29/17 07:40 Anion Gap 8 (8-16) 04/29/17 07:40 BUN 16 mg/dL (7-18) D 04/29/17 07:40 Creatinine 0.7 mg/dL (0.55-1.02) 04/29/17 07:40 Creat Clearance w eGFR > 60 (>60) 04/29/17 07:40 Random Glucose 102 mg/dL (74-106) 04/29/17 07:40 Calcium 8.5 mg/dL (8.5-10.1) 04/29/17 07:40 Total Bilirubin 0.4 mg/dL (0.2-1.0) 04/29/17 07:40 AST 22 U/L (15-37) D 04/29/17 07:40 ALT 13 U/L (12-78) 04/29/17 07:40 Alkaline Phosphatase 57 U/L (45-117) 04/29/17 07:40 Total Protein 5.6 g/dl (6.4-8.2) L 04/29/17 07:40 Albumin 3.0 g/dl (3.4-5.0) L 04/29/17 07:40 Current Medications Generic Name Dose Route Start Last Admin Trade Name Freq PRN Reason Stop Dose Admin Amlodipine Besylate 5 mg 04/28/17 15:04 04/28/17 15:00 Norvasc - PO Not Given Q48H BALA Atorvastatin Calcium 40 mg 04/28/17 22:00 04/28/17 21:40 Lipitor - PO 40 mg HS BALA Administration Heparin Sodium (Porcine) 5,000 unit 04/28/17 22:00 04/29/17 14:53 Heparin - SQ 5,000 unit TID BALA Administration CEFTRIAXONE 1 G/50 ML PREMIX 50 mls @ 100 mls/hr 04/29/17 11:15 04/29/17 12: 57 Ceftriaxone 1 Gm-D5w Bag IVPB 100 mls/hr DAILY BALA Administration Metronidazole 500 mg in 100 mls @ 100 mls/hr 04/29/17 11:15 04/29/17 12:56 Flagyl 500mg Premixed Ivpb - IVPB 100 mls/hr Q8H-IV BALA Administration Pantoprazole Sodium 40 mg 04/29/17 22:00 Protonix - PO BID BALA Home Medications Medication Instructions Recorded Atorvastatin Ca [Lipitor] 40 mg PO HS 04/27/17 Amlodipine Besylate [Norvasc -] 5 mg PO Q48H 04/28/17 PE: per resident's note ASSESSMENT AND PLAN: Patient is a 86 y/o lady with PMHx of HTN, nephrolithiasis and HLP who presented with N/V , abd pain/and distention. #S/p Acute Abdominal pain with N/V post consuming Lobster due to PSBO with closed loop obstruction . Continue IVF , if tolerates diet can be discharged home in am # HTN: Uncontrolled will increase Norvasc to 10mg #Large renal cyst: 8.8x7.6x9.7 pt and daughter notified of need to follow up for this # b/l adnexal cysts: pt and daughter made aware of. need f/u with CERT[facility]IED OPTICIAN as an outpatient # Lung nodules with multiple scattered calcifications ,positive for granulomatous disease : also notified pt and family. f/u CT in 3 months Add Heparin sq . dc patient home if tolerates diet , and if continues to improve.
[2017-04-29] MEDS: ATORVASTATIN CA 40 MG TABLET (FP) PO SCH (21:06)
[2017-04-29] MEDS: PANTOPRAZOLE 40 MG TABLET (FP) PO SCH (21:06)
[2017-04-30] MEDS: METRONIDAZOLE 500 MG PREMIXED 500 MG/100 ML MG IVPB SCH ×3 (02:56→17:29)
[2017-04-30] MEDS: HEPARIN NA (PORCINE) 5,000 UNITS/ML 1ML VIAL SQ SCH ×3 (06:07→21:03)
[2017-04-30 08:40] LABS: HEMATOCRIT 32.1 % (32.4-45.2); HEMOGLOBIN 10.6 GM/dL (10.7-15.3); MCH 30.3 pg (25.7-33.7); MCHC 32.9 g/dl (32.0-36.0); MEAN CELL VOLUME 92.1 fl (80-96); MEAN PLT VOLUME 8.6 fl (7.5-11.1); PLATELET COUNT 139 K/MM3 (134-434); RBC 3.48 M/mm3 (3.60-5.2); RDW 13.6 % (11.6-15.6); WHITE BLOOD COUNT 5.6 K/mm3 (4.0-10.0)
[2017-04-30 09:09] LABS: ALBUMIN 3.2 g/dl (3.4-5.0); ANION GAP 5 (8-16); BILIRUBIN,TOTAL 0.6 mg/dL (0.2-1.0); BLOOD UREA NITROGEN 16 mg/dL (7-18); CALCIUM 8.6 mg/dL (8.5-10.1); CHLORIDE 106 mmol/L (98-107); CO2 31 mmol/L (21-32); CREATININE 0.7 mg/dL (0.55-1.02); GLUCOSE,RANDOM 91 mg/dL (74-106); POTASSIUM 3.8 mmol/L (3.5-5.1); SGOT/AST 22 U/L (15-37); SGPT/ALT 14 U/L (12-78); SODIUM 142 mmol/L (136-145); TOT PROT 5.9 g/dl (6.4-8.2)
[2017-04-30 09:10] LABS: ALK PHOS 56 U/L (45-117)
[2017-04-30] MEDS: PANTOPRAZOLE 40 MG TABLET (FP) PO SCH ×2 (09:25→21:03)
[2017-04-30] MEDS: amLODIPine BESYLATE 5 MG TABLET (FP) PO SCH (09:26)
[2017-04-30] MEDS: CEFTRIAXONE 1 G/50 ML PREMIX 50 ML IVPB SCH (09:32)
[2017-04-30] MEDS ORDERED: SODIUM PHOSPHATE/NA BIPHOS 133 ML ENEMA PR ONE (12:55)
--- NOTE | 2017-04-30 13:53 | MSN ---
Progress Note (short form) - Note Progress Note: Subjective: Patient was seen this morning and had no complaints. She says that she is eating well and has been passing gas but denies having a bowel movement. Patient denies SOB, chest pains, abdominal pain, nausea or vomiting. Objective: Last Vital Signs Temp Pulse Resp BP Pulse Ox 98.8 F 70 18 138/80 96 04/30/17 08:36 04/30/17 08:36 04/30/17 08:36 04/30/17 08:36 04/30/17 08:46 CBC, BMP 04/30/17 08:05 04/30/17 08:05 General: patient is pleasant, appears comfortable and in no apparent distress HEENT: normocephalic, atraumatic. PERRLA. EOMI. no lymphadenopathy. Lungs: CTA B/L. No crackles, rhonci. Cardiovascular: Regular rate. 2/6 systolic murmur on 2nd intercostal space on right. Abdomen: soft, non distended. normoactive bowel sounds. tender on deep palpation on the RUQ, LUQ and hypogastric area. Extremities: 2+ pulses on B/L UE and LE. No edema noted. Imaging: - CR Abd [id number] 04/29/2016: No evidence of pneumoperitoneum and intestinal obstruction - CR Abd flat & upright 04/28/2017: Moderate amount of fecal debris in the ascending colon. No evidence of pneumoperitoneum, intestinal obstruction. - US abd 04/28/2017: Minimal sludge layering in the gallbladder without sonographic evidence of acute cholecystitis. Minimal ascites in the left upper quadrant. Large left renal simple cyst measuring 9.5 x 4.5 cm and a tiny right renal simple cyst measuring 8 mm. Small right hepatic lobe simple cyst measuring 1 cm. - Chest X-ray 04/28/2017: cardiomegaly. no active pulmonary disease - CT of abd&pelvis w/contrast 04/27/2017: 1. Scattered nodules and calcifications within the lung bases. Prior granulomatous disease is suspected. 2. Distended loops of small bowel within the pelvis suspicious for partial obstruction. This may be a closed loop obstruction. There is also a small amount of free fluid within the right lower quadrant and pelvis. Clinical correlation and follow-up is now recommended. 3. Bilateral ovarian cysts. Pelvic sonographic follow-up recommended. Microbiology 04/27/17 20:10 Urine - Urine - Catheterized Urine Culture - Final. Escherichia Coli Assessment / Plan: 86yo F with hx of nephrolithiasis, HTN, hyperlipidemia who presented with vomiting and abdominal pain due to possible SBO found on CT. Other differentials included UTI and gastroenteritis. # Abd pain - IV Fluids: Dextrose/Sodium Chloride (D5-1/2ns -) 1,000 mls @ 100 mls/hr IV ASDIR BALA - nausea: Ondansetron HCl (Zofran Injection) 8 mg IVPB Q4H PRN - soft diet as tolerated - pending urinalysis. urine culture shows E. Coli. Antibiotics course day 2 CEFTRIAXONE 1 G/50 ML PREMIX (Ceftriaxone 1 Gm-D5w Bag) 50 mls @ 100 mls/hr IVPB DAILY BALA. Metronidazole (Flagyl 500mg Premixed Ivpb -) 500 mg in 100 mls @ 100 mls/hr IVPB Q8H-IV BALA - Pantoprazole Sodium (Protonix Iv) 40 mg IVPB BID BALA - constipation: enema - can probably be discharged home tomorrow if continues to improve # HTN - continue Amlodipine Besylate (Norvasc -) 5 mg PO Q48H BALA #HLD - continue home medication of atorvastatin 40mg PO daily #lung nodules - patient and daughter made aware to follow up with CT in 6 mo # renal cyst - patient and daughter made aware to follow up # b/l adnexal cyst - patient and daughter made aware to follow up with [facility]. #FEN/ prophylaxis - F: Dextrose/Sodium Chloride (D5-1/2ns -) 1,000 mls @ 100 mls/hr IV ASDIR BALA - E: K+ repleted - N: soft diet - DVT prophylaxis: Heparin Sodium (Porcine) (Heparin -) 5,000 unit SQ TID BALA
--- NOTE | 2017-04-30 15:36 | PN ---
GI Progress Note Subjective: GI NOte: Developed more pain and distension yesterday but had not had a BM since being hospitalized. Reverted to liquids. Feels better after the enema induced a BM. I have advised that she stay overnight to allow for 2 solids meals and Miralax and assurance that her SBO has resolved. - Objective Vital Signs: Vital Signs Temperature 98.1 F 04/30/17 14:16 Pulse Rate 74 04/30/17 14:16 Respiratory Rate 18 04/30/17 08:36 Blood Pressure 146/86 04/30/17 14:16 O2 Sat by Pulse Oximetry (%) 96 04/30/17 08:46 Laboratory Tests 04/27/17 04/28/17 04/30/17 20:10 05:50 08:05 WBC 5.6 Hgb 10.6 L Potassium BUN Creatinine Lactic Acid 1.1 Total Bilirubin C-Reactive Protein 0.8 H 04/30/17 08:05 WBC Hgb Potassium 3.8 BUN 16 Creatinine 0.7 Lactic Acid Total Bilirubin 0.6 D C-Reactive Protein Constitutional: Calm Gastrointestinal Inspection: Yes: Distention (but soft) ...Auscultate: Yes: Hyperactive Bowel Sounds ...Palpate: Yes: Soft, Other (nontender) Labs: CBC, BMP 04/30/17 08:05 04/30/17 08:05 INR, PTT INR 1.19 (0.82-1.09) H 04/28/17 05:50 Assessment/Plan Resolved ? SBO Soft diet Miralax FUA in AM If stable can consider discharge in AM. Discussed plan with patient and daughter. Problem List - Problems (1) Abdominal pain Code(s): R10.9 - UNSPECIFIED ABDOMINAL PAIN (2) Vomiting Code(s): R11.10 - VOMITING, UNSPECIFIED (3) History of nephrolithiasis Code(s): Z87.442 - PERSONAL HISTORY OF URINARY CALCULI (4) Hypertension Code(s): I10 - ESSENTIAL (PRIMARY) HYPERTENSION (5) Hyperlipidemia Code(s): E78.5 - HYPERLIPIDEMIA, UNSPECIFIED (6) UTI (urinary tract infection) Code(s): N39.0 - URINARY TRACT INFECTION, SITE NOT SPECIFIED (7) Pulmonary nodules Code(s): R91.8 - OTHER NONSPECIFIC ABNORMAL FINDING OF LUNG FIELD (8) Small bowel obstruction Assessment/Plan: Appears to be resolving. Will try soft diet, Miralax and repeat FUA in AM. Discussed case with the resident Dr Byrd. Code(s): K56.609 - UNSP INTESTNL OBST, UNSP TO PARTIAL VERSUS COMPLETE OBST
--- NOTE | 2017-04-30 16:08 | PN ---
Physical Exam: SUBJECTIVE: Patient seen and examined No acute events overnight. Pt reports that her abdominal distention has decreased a lot, she has passed flatus, had a small BM, is tolerating her diet well, and has had no nausea or emesis. OBJECTIVE: Vital Signs Period Temp Pulse Resp BP Sys/Ivey Pulse Ox Last 24 Hr 97.5 F-98.8 F 70-90 18-22 105-146/60-86 94-96 GENERAL: elderly female, lying in bed, AAOx3, NAD HEENT: NC, AT NECK: Trachea midline, full range of motion, supple. LUNGS: Breath sounds equal, clear to auscultation bilaterally, no wheezes, no crackles, no accessory muscle use. HEART: Regular rate and rhythm, S1, S2 without murmur, rub or gallop. ABDOMEN: mildly distended, soft, mildly tender in suprapubic region EXTREMITIES: 2+ pulses, warm, well-perfused, no edema. NEUROLOGICAL: Cranial nerves II through XII grossly intact. Normal speech, gait not observed. Laboratory Results - last 24 hr 04/30/17 04/30/17 04/30/17 08:05 08:05 08:05 WBC 5.6 RBC 3.48 L Hgb 10.6 L Hct 32.1 L MCV 92.1 MCH 30.3 MCHC 32.9 RDW 13.6 Plt Count 139 MPV 8.6 Sodium 142 Potassium 3.8 Chloride 106 Carbon Dioxide 31 Anion Gap 5 L BUN 16 Creatinine 0.7 Creat Clearance w eGFR > 60 Random Glucose 91 Lactic Acid 0.5 Calcium 8.6 Total Bilirubin 0.6 D AST 22 ALT 14 Alkaline Phosphatase 56 Total Protein 5.9 L Albumin 3.2 L Active Medications Generic Name Dose Route Start Last Admin Trade Name Freq PRN Reason Stop Dose Admin Amlodipine Besylate 5 mg 04/30/17 10:00 04/30/17 09:26 Norvasc - PO 5 mg DAILY BALA Administration Atorvastatin Calcium 40 mg 04/28/17 22:00 04/29/17 21:06 Lipitor - PO 40 mg HS BALA Administration Heparin Sodium (Porcine) 5,000 unit 04/28/17 22:00 04/30/17 14:21 Heparin - SQ 5,000 unit TID BALA Administration CEFTRIAXONE 1 G/50 ML PREMIX 50 mls @ 100 mls/hr 04/29/17 11:15 04/30/17 09: 32 Ceftriaxone 1 Gm-D5w Bag IVPB 100 mls/hr DAILY BALA Administration Metronidazole 500 mg in 100 mls @ 100 mls/hr 04/29/17 11:15 04/30/17 09:26 Flagyl 500mg Premixed Ivpb - IVPB 100 mls/hr Q8H-IV BALA Administration Pantoprazole Sodium 40 mg 04/29/17 22:00 04/30/17 09:25 Protonix - PO 40 mg BID BALA Administration Polyethylene Glycol 17 gm 04/30/17 16:00 Miralax (For Daily Use) - PO TID BALA ASSESSMENT/PLAN: 86F w/ hx of HTN, HLD, and nephrolithiasis who presented with N/V and abd pain/ distention, and was found to have CT evidence of distention in small bowel loops #Abd pain, N/V: improving - SBO vs. enteritis vs. UTI - pt had BM after enema was given. Will continue to monitor until amanda morning , and if continuing to improve, will D/C home - fluids discontinued - GI on board, recs appreciated - monitor for flatus and BMs - serial abd exam #UTI -Ucx: >100,000 CFU of E. coli -continue ceftriaxone and flagyl -will D/C on ceftin and flagyl #HTN - continue home norvasc #L renal cyst -pt and daughter notified of need to follow up for this #b/l adnexal cysts -pt and daughter made aware of need f/u with [facility] CL[facility] #lung nodules -also notified pt and family. f/u CT in 6 months #FEN/ppx -po fluids -K repleted -full liquid -protonix -heparin 5000U TID #Dispo -D/C home amanda am if abdominal pain/distention continues to improve overnight. Case discussed with attending, Dr. Pham. -Gideon Vasquez MD PGY1 Visit type - Emergency Visit Emergency Visit: Yes ED Registration Date: 04/27/17 Care time: The patient presented to the Emergency Department on the above date and was hospitalized for further evaluation of their emergent condition. - New Patient This patient is new to me today: No - Critical Care Critical Care patient: No
[2017-04-30] MEDS: POLYETHYLENE GLYCOL 3350 119 GM BTL PO SCH ×2 (16:11→21:06)
--- NOTE | 2017-04-30 20:15 | PN ---
Teaching Attending Note Name of Resident: Gideon Vasquez ATTENDING PHYSICIAN STATEMENT I saw and evaluated the patient. I reviewed the resident's note and discussed the case with the resident. I agree with the resident's findings and plan as documented. SUBJECTIVE: Patient had a small BM, tolerating her diet well. No fever or chills, no nausea or emesis. OBJECTIVE: Vital Signs Temperature 98.1 F 04/30/17 14:16 Pulse Rate 74 04/30/17 14:16 Respiratory Rate 18 04/30/17 08:36 Blood Pressure 146/86 04/30/17 14:16 O2 Sat by Pulse Oximetry (%) 96 04/30/17 08:46 CBCD WBC 5.6 K/mm3 (4.0-10.0) 04/30/17 08:05 RBC 3.48 M/mm3 (3.60-5.2) L 04/30/17 08:05 Hgb 10.6 GM/dL (10.7-15.3) L 04/30/17 08:05 Hct 32.1 % (32.4-45.2) L 04/30/17 08:05 MCV 92.1 fl (80-96) 04/30/17 08:05 MCHC 32.9 g/dl (32.0-36.0) 04/30/17 08:05 RDW 13.6 % (11.6-15.6) 04/30/17 08:05 Plt Count 139 K/MM3 (134-434) 04/30/17 08:05 MPV 8.6 fl (7.5-11.1) 04/30/17 08:05 CMP Sodium 142 mmol/L (136-145) 04/30/17 08:05 Potassium 3.8 mmol/L (3.5-5.1) 04/30/17 08:05 Chloride 106 mmol/L (98-107) 04/30/17 08:05 Carbon Dioxide 31 mmol/L (21-32) 04/30/17 08:05 Anion Gap 5 (8-16) L 04/30/17 08:05 BUN 16 mg/dL (7-18) 04/30/17 08:05 Creatinine 0.7 mg/dL (0.55-1.02) 04/30/17 08:05 Creat Clearance w eGFR > 60 (>60) 04/30/17 08:05 Random Glucose 91 mg/dL (74-106) 04/30/17 08:05 Calcium 8.6 mg/dL (8.5-10.1) 04/30/17 08:05 Total Bilirubin 0.6 mg/dL (0.2-1.0) D 04/30/17 08:05 AST 22 U/L (15-37) 04/30/17 08:05 ALT 14 U/L (12-78) 04/30/17 08:05 Alkaline Phosphatase 56 U/L (45-117) 04/30/17 08:05 Total Protein 5.9 g/dl (6.4-8.2) L 04/30/17 08:05 Albumin 3.2 g/dl (3.4-5.0) L 04/30/17 08:05 Current Medications Generic Name Dose Route Start Last Admin Trade Name Freq PRN Reason Stop Dose Admin Amlodipine Besylate 5 mg 04/30/17 10:00 04/30/17 09:26 Norvasc - PO 5 mg DAILY BALA Administration Atorvastatin Calcium 40 mg 04/28/17 22:00 04/29/17 21:06 Lipitor - PO 40 mg HS BALA Administration Heparin Sodium (Porcine) 5,000 unit 04/28/17 22:00 04/30/17 14:21 Heparin - SQ 5,000 unit TID BALA Administration CEFTRIAXONE 1 G/50 ML PREMIX 50 mls @ 100 mls/hr 04/29/17 11:15 04/30/17 09: 32 Ceftriaxone 1 Gm-D5w Bag IVPB 100 mls/hr DAILY BALA Administration Metronidazole 500 mg in 100 mls @ 100 mls/hr 04/29/17 11:15 04/30/17 17:29 Flagyl 500mg Premixed Ivpb - IVPB 100 mls/hr Q8H-IV BALA Administration Pantoprazole Sodium 40 mg 04/29/17 22:00 04/30/17 09:25 Protonix - PO 40 mg BID BALA Administration Polyethylene Glycol 17 gm 04/30/17 16:00 04/30/17 16:11 Miralax (For Daily Use) - PO 17 gm TID BALA Administration Home Medications Medication Instructions Recorded Atorvastatin Ca [Lipitor] 40 mg PO HS 04/27/17 Amlodipine Besylate [Norvasc -] 5 mg PO Q48H 04/28/17 PE: per resident's note ASSESSMENT AND PLAN: Patient is a 86 y/o lady with PMHx of HTN, nephrolithiasis and HLP who presented with N/V , abd pain/and distention. #S/p Acute Abdominal pain with N/V post consuming Lobster due to PSBO with closed loop obstruction . Continue IVF , tolerating diet , will send the patient home in am # HTN: Uncontrolled will increase Norvasc to 10mg will follow #Large renal cyst: 8.8x7.6x9.7 pt and daughter notified of need to follow up for this # b/l adnexal cysts: pt and daughter made aware of. need f/u with [facility] as an outpatient # Lung nodules with multiple scattered calcifications ,positive for granulomatous disease : also notified pt and family. f/u CT in 3 months Add Heparin sq . dc patient home if tolerates diet , and if continues to improve.
[2017-04-30] MEDS: ATORVASTATIN CA 40 MG TABLET (FP) PO SCH (21:03)
[2017-05-01] MEDS: METRONIDAZOLE 500 MG PREMIXED 500 MG/100 ML MG IVPB SCH ×2 (02:45→09:55)
[2017-05-01] MEDS: HEPARIN NA (PORCINE) 5,000 UNITS/ML 1ML VIAL SQ SCH (06:09)
[2017-05-01] MEDS: POLYETHYLENE GLYCOL 3350 119 GM BTL PO SCH (06:11)
[2017-05-01 08:53] LABS: BASO % 0.6 % (0-2.0); EOS % 3.8 % (0-4.5); HEMATOCRIT 34.1 % (32.4-45.2); HEMOGLOBIN 11.1 GM/dL (10.7-15.3); LYMPH % 38.4 % (8-40); MCH 29.9 pg (25.7-33.7); MCHC 32.7 g/dl (32.0-36.0); MEAN CELL VOLUME 91.3 fl (80-96); MEAN PLT VOLUME 8.5 fl (7.5-11.1); MONO % 9.9 % (3.8-10.2); NEUT % 47.3 % (42.8-82.8); PLATELET COUNT 154 K/MM3 (134-434); RBC 3.73 M/mm3 (3.60-5.2); RDW 13.3 % (11.6-15.6); WHITE BLOOD COUNT 5.7 K/mm3 (4.0-10.0)
[2017-05-01 09:23] LABS: CHLORIDE 104 mmol/L (98-107); SODIUM 141 mmol/L (136-145)
[2017-05-01 09:30] LABS: ALBUMIN 3.3 g/dl (3.4-5.0); ALK PHOS 60 U/L (45-117); ANION GAP 9 (8-16); BILIRUBIN,TOTAL 0.6 mg/dL (0.2-1.0); BLOOD UREA NITROGEN 19 mg/dL (7-18); CO2 28 mmol/L (21-32); CREATININE 0.8 mg/dL (0.55-1.02); GLUCOSE,RANDOM 90 mg/dL (74-106); SGOT/AST 29 U/L (15-37); SGPT/ALT 14 U/L (12-78); TOT PROT 6.3 g/dl (6.4-8.2)
--- NOTE | 2017-05-01 09:34 | PN ---
Teaching Attending Note Name of Resident: Gideon Vasquez ATTENDING PHYSICIAN STATEMENT I saw and evaluated the patient. I reviewed the resident's note and discussed the case with the resident. I agree with the resident's findings and plan as documented. SUBJECTIVE: Patient is comfortable with no acute distress, tolerating diet well. Passing gas without any difficulties. OBJECTIVE: Vital Signs Temperature 98.5 F 05/01/17 06:00 Pulse Rate 64 05/01/17 06:00 Respiratory Rate 20 05/01/17 06:00 Blood Pressure 116/57 05/01/17 06:00 O2 Sat by Pulse Oximetry (%) 98 04/30/17 20:20 CBCD WBC 5.7 K/mm3 (4.0-10.0) 05/01/17 08:15 RBC 3.73 M/mm3 (3.60-5.2) 05/01/17 08:15 Hgb 11.1 GM/dL (10.7-15.3) 05/01/17 08:15 Hct 34.1 % (32.4-45.2) 05/01/17 08:15 MCV 91.3 fl (80-96) 05/01/17 08:15 MCHC 32.7 g/dl (32.0-36.0) 05/01/17 08:15 RDW 13.3 % (11.6-15.6) 05/01/17 08:15 Plt Count 154 K/MM3 (134-434) 05/01/17 08:15 MPV 8.5 fl (7.5-11.1) 05/01/17 08:15 CMP Sodium 142 mmol/L (136-145) 04/30/17 08:05 Potassium 3.8 mmol/L (3.5-5.1) 04/30/17 08:05 Chloride 106 mmol/L (98-107) 04/30/17 08:05 Carbon Dioxide 31 mmol/L (21-32) 04/30/17 08:05 Anion Gap 5 (8-16) L 04/30/17 08:05 BUN 16 mg/dL (7-18) 04/30/17 08:05 Creatinine 0.7 mg/dL (0.55-1.02) 04/30/17 08:05 Creat Clearance w eGFR > 60 (>60) 04/30/17 08:05 Random Glucose 91 mg/dL (74-106) 04/30/17 08:05 Calcium 8.6 mg/dL (8.5-10.1) 04/30/17 08:05 Total Bilirubin 0.6 mg/dL (0.2-1.0) D 04/30/17 08:05 AST 22 U/L (15-37) 04/30/17 08:05 ALT 14 U/L (12-78) 04/30/17 08:05 Alkaline Phosphatase 56 U/L (45-117) 04/30/17 08:05 Total Protein 5.9 g/dl (6.4-8.2) L 04/30/17 08:05 Albumin 3.2 g/dl (3.4-5.0) L 04/30/17 08:05 Current Medications Generic Name Dose Route Start Last Admin Trade Name Freq PRN Reason Stop Dose Admin Amlodipine Besylate 5 mg 04/30/17 10:00 04/30/17 09:26 Norvasc - PO 5 mg DAILY BALA Administration Atorvastatin Calcium 40 mg 04/28/17 22:00 04/30/17 21:03 Lipitor - PO 40 mg HS BALA Administration Heparin Sodium (Porcine) 5,000 unit 04/28/17 22:00 05/01/17 06:09 Heparin - SQ 5,000 unit TID BALA Administration CEFTRIAXONE 1 G/50 ML PREMIX 50 mls @ 100 mls/hr 04/29/17 11:15 04/30/17 09: 32 Ceftriaxone 1 Gm-D5w Bag IVPB 100 mls/hr DAILY BALA Administration Metronidazole 500 mg in 100 mls @ 100 mls/hr 04/29/17 11:15 05/01/17 02:45 Flagyl 500mg Premixed Ivpb - IVPB 100 mls/hr Q8H-IV BALA Administration Pantoprazole Sodium 40 mg 04/29/17 22:00 04/30/17 21:03 Protonix - PO 40 mg BID BALA Administration Polyethylene Glycol 17 gm 04/30/17 16:00 05/01/17 06:11 Miralax (For Daily Use) - PO 17 gm TID BALA Administration Home Medications Medication Instructions Recorded Atorvastatin Ca [Lipitor] 40 mg PO HS 04/27/17 Amlodipine Besylate [Norvasc -] 5 mg PO Q48H 04/28/17 Polyethylene Glycol 3350 [Miralax 17 gm PO TID #1 bottle 05/01/17 119 gm Btl -] PE: per resident's note ASSESSMENT AND PLAN: Patient is a 86 y/o lady with PMHx of HTN, nephrolithiasis and HLP who presented with N/V , abd pain/and distention. #S/p PSBO resolved , s/p Acute Abdominal pain with N/V post consuming Lobster due to PSBO with closed loop obstruction . Patient tolerated diet well, will discharge her home today , follow up with GI # HTN: Uncontrolled will increase Norvasc to 10mg will follow #Large renal cyst: 8.8x7.6x9.7 pt and daughter notified of need to follow up for this # b/l adnexal cysts: pt and daughter made aware of. need f/u with [facility]K CLERK as an outpatient # Lung nodules with multiple scattered calcifications ,positive for granulomatous disease : also notified pt and family. f/u CT in 3 months dc patient home
[2017-05-01] MEDS: CEFTRIAXONE 1 G/50 ML PREMIX 50 ML IVPB SCH (09:55)
[2017-05-01] MEDS: amLODIPine BESYLATE 5 MG TABLET (FP) PO SCH (09:56)
[2017-05-01] MEDS: PANTOPRAZOLE 40 MG TABLET (FP) PO SCH (09:56)
[2017-05-01 11:27] VITALS: BP 122/72; PULSE 76; TEMP 98.3
--- NOTE | 2017-05-01 12:27 | PN ---
GI Progress Note Subjective: GI NOte: Tolerated dinner and breakfast. Had a good BM today. No pain or nausea. FUA reveals no obstruction. - Objective Vital Signs: Vital Signs Temperature 98.3 F 05/01/17 08:00 Pulse Rate 76 05/01/17 08:00 Respiratory Rate 20 05/01/17 08:00 Blood Pressure 122/72 05/01/17 08:00 O2 Sat by Pulse Oximetry (%) 98 05/01/17 08:00 Laboratory Tests 05/01/17 05/01/17 08:15 08:15 WBC 5.7 Hgb 11.1 C-Reactive Protein 1.7 H D Constitutional: No Distress Gastrointestinal Inspection: Yes: Distention ...Auscultate: Yes: Hyperactive Bowel Sounds ...Palpate: Yes: Soft, Other (nontender) ...Percussion: Yes: Tympanitic Labs: CBC, BMP 05/01/17 08:15 05/01/17 08:15 INR, PTT INR 1.19 (0.82-1.09) H 04/28/17 05:50 Problem List - Problems (1) Abdominal pain Assessment/Plan: Resolved SBO makayla accounts for this clinical scenario than does food poisoning. I have explained that it may recur to Gay and her daughter and if so that surgery will need to be reconsidered. No GI objections to discharge. Advised Miralax once daily at home. Code(s): R10.9 - UNSPECIFIED ABDOMINAL PAIN (2) Vomiting Code(s): R11.10 - VOMITING, UNSPECIFIED (3) History of nephrolithiasis Code(s): Z87.442 - PERSONAL HISTORY OF URINARY CALCULI (4) Hypertension Code(s): I10 - ESSENTIAL (PRIMARY) HYPERTENSION (5) Hyperlipidemia Code(s): E78.5 - HYPERLIPIDEMIA, UNSPECIFIED (6) UTI (urinary tract infection) Code(s): N39.0 - URINARY TRACT INFECTION, SITE NOT SPECIFIED (7) Pulmonary nodules Code(s): R91.8 - OTHER NONSPECIFIC ABNORMAL FINDING OF LUNG FIELD (8) Small bowel obstruction Code(s): K56.609 - UNSP INTESTNL OBST, UNSP TO PARTIAL VERSUS COMPLETE OBST
--- NOTE | 2017-05-01 13:00 | DS ---
Physical Exam: SUBJECTIVE: Patient seen and examined No acute events overnight. Pt reports tolerating diet well without nausea, emesis, or abdominal pain. She reports having a BM after receiving the enema last night. She denies abdominal distention. She has no subjective complaints. OBJECTIVE: Vital Signs Period Temp Pulse Resp BP Sys/Ivey Pulse Ox Last 24 Hr 98.1 F-98.6 F 64-84 18-20 116-146/57-86 98-98 PHYSICAL EXAM GENERAL: The patient is awake, alert, and fully oriented, in no acute distress. HEENT: NC, AT, [place] LUNGS: Breath sounds equal, clear to auscultation bilaterally, no wheezes, no crackles, no accessory muscle use. HEART: Regular rate and rhythm, S1, S2 without murmur, rub or gallop. ABDOMEN: Soft, nontender, nondistended, normoactive bowel sounds, no guarding, no rebound, no hepatosplenomegaly, no masses. EXTREMITIES: 2+ pulses, warm, well-perfused, no edema. NEUROLOGICAL: Cranial nerves II through XII grossly intact. Normal speech, gait not observed. PSYCH: Normal mood, normal affect. LABS Laboratory Results - last 24 hr 05/01/17 05/01/17 08:15 08:15 WBC 5.7 RBC 3.73 Hgb 11.1 Hct 34.1 MCV 91.3 MCH 29.9 MCHC 32.7 RDW 13.3 Plt Count 154 MPV 8.5 Neutrophils % 47.3 D Lymphocytes % 38.4 D Monocytes % 9.9 Eosinophils % 3.8 D Basophils % 0.6 Sodium 141 Potassium 4.0 Chloride 104 Carbon Dioxide 28 Anion Gap 9 BUN 19 H Creatinine 0.8 Creat Clearance w eGFR > 60 Random Glucose 90 Calcium 9.0 Total Bilirubin 0.6 AST 29 D ALT 14 Alkaline Phosphatase 60 C-Reactive Protein 1.7 H D Total Protein 6.3 L Albumin 3.3 L Microbiology 04/27/17 20:10 Urine - Urine - Catheterized Urine Culture - Final Escherichia Coli CT abd/pelvis: Sequential axial images were obtained from the domes of the diaphragms through the symphysis pubis following the administration of both oral and intravenous contrast material. Evaluation of the lung bases demonstrates mild nodularity and multiple scattered calcifications. This appearance most likely represents prior granulomatous disease. Clinical correlation is advised. The liver is normal in size and texture. There are hypodensities throughout the liver that most likely represent small cysts but are too small to accurately characterize. The gallbladder is somewhat distended with slight prominence of the biliary tree. No obvious obstruction is suggested. The spleen, pancreas, adrenal glands and kidneys demonstrate no significant abnormalities. There is a large right renal cyst which measures 8.8 x 7.6 x 9.7 cm. A small right-sided cortical cyst is also present. There is no evidence of intra-abdominal or retroperitoneal lymphadenopathy or fluid collections. There are distended loops of small bowel within the pelvis. This is suspicious for a partial obstruction and may represent a closed loop obstruction. Proximal jejunal and distal ileal loops are of overall normal caliber. Air and stool is seen throughout the colon. There is also a small amount of free fluid within the right lower quadrant and pelvis. Clinical correlation and follow-up is now recommended. There is no evidence of pneumoperitoneum or intra-abdominal abscess. There is no CT evidence of acute appendicitis or diverticulitis. Examination of the pelvis demonstrates bilateral ovarian cyst. The right sided cyst measures 3.2 x 3.2 x 3.4 cm. The left ovarian cyst measures approximately 2.3 cm. Pelvic sonographic follow-up is recommended, if clinically indicated. There is no evidence of pelvic masses, fluid collections or lymphadenopathy. The graft there is no evidence of acute bony pathology. IMPRESSION: 1. Scattered nodules and calcifications within the lung bases. Prior granulomatous disease is suspected. 2. Distended loops of small bowel within the pelvis suspicious for partial obstruction. This may be a closed loop obstruction. There is also a small amount of free fluid within the right lower quadrant and pelvis. Clinical correlation and follow-up is now recommended. 3. Bilateral ovarian cysts. Pelvic sonographic follow-up recommended. Please see above discussion. HOSPITAL COURSE: Date of Admission:04/27/17 Date of Discharge: 05/01/17 86F w/ hx of HTN, HLD, and nephrolithiasis who presented with N/V and abd pain/ distention, and was found to have CT evidence of possible partial SBO as well as UTI. Pt was treated with IV fluids, pain control, anti-emetics, laxatives, and antibiotics. Her diet was advanced as tolerated. Her abdominal pain and distention improved, her nausea and emesis resolved, and she had a BM. Pt's CT scan showed incidental findings of lung nodules and b/l adnexal cysts for which the pt was told to f/u. Today, pt has normal vitals, no subjective complaints, a benign physical exam, radiographic evidence of improvement, and is ready for discharge home. Pt instructed to f/u with her PCP and [facility] and to finish course of ceftin for her UTI. -Gideon Vasquez MD PGY1 Minutes to complete discharge: 38 Discharge Summary Reason For Visit: SMALL BOWEL OBSTRUCTION Current Active Problems Abdominal pain (Acute) Pulmonary nodules (Acute) Small bowel obstruction (Acute) UTI (urinary tract infection) (Acute) Vomiting (Acute) Hyperlipidemia (Chronic) Hypertension (Chronic) Condition: Stable - Instructions Diet, Activity, Other Instructions: You presented with abdominal pain, diarrhea, and vomiting likely due to a partial small bowel obstruction, enteritis, or UTI. You were treated with IV fluids, anti-emetics, and antibiotics, and your diet was advanced as tolerated. Medications: Continue taking all previous medications except: 1. Take ceftin for 5 more days to finish your course of antibiotics for the UTI. 2. Take miralax for your constipation Follow-ups: 1. Please visit your PCP within one week. 2. Follow up with your [facility] for the adnexal cysts seen on the CT scan who will likely perform a pelvic ultrasound. If you don't one, we have referred you to Dr. Mera. 3. Obtain a follow-up CT scan of your chest in 3 months to assess your lung nodules. If you develop any worsening abdominal pain, nausea, vomiting, fevers, chills, or any other concerning symptoms, return to the ED. Referrals: Ashok Mera MD [Staff Physician] - Favian Castellano MD [Primary Care Provider] - Disposition: HOME - Home Medications Comprehensive Discharge Medication List: Ambulatory Orders Atorvastatin Ca [Lipitor] 40 mg PO HS 04/27/17 Amlodipine Besylate [Norvasc -] 5 mg PO Q48H 04/28/17 Cefuroxime Axetil [Ceftin -] 250 mg PO BID #10 tablet 05/01/17 Polyethylene Glycol 3350 [Miralax (For Bowel Prep) -] 17 gm PO DAILY #1 btl 09/11 Polyethylene Glycol 3350 [Miralax 119 gm Btl -] 17 gm PO TID #1 bottle 05/01/17 This patient is new to me today: No Emergency Visit: Yes ED Registration Date: 04/27/17 Care time: The patient presented to the Emergency Department on the above date and was hospitalized for further evaluation of their emergent condition. Critical Care patient: No - Discharge Referral Referred to [facility] Med P.C.: No
== END 2017-05-01 13:13 | disposition home or self-care (01) | DRG 389 ==
LOC: SUPCPDRO 17:35 → JER 17:35 → JERBED 22:10 → J6S 04-28 19:06
PROVIDERS: ADMIT Internal Medicine; ATTEND Internal Medicine
DX: K56.699 Other intestinal obstruction unspecified as to partial versus complete obstruction (principal); N39.0 Urinary tract infection, site not specified; E87.2 Acidosis; I10 Essential (primary) hypertension; E78.5 Hyperlipidemia, unspecified; R11.10 Vomiting, unspecified; N28.1 Cyst of kidney, acquired; K76.89 Other specified diseases of liver; N83.292 Other ovarian cyst, left side; N83.291 Other ovarian cyst, right side; K82.8 Other specified diseases of gallbladder; R91.8 Other nonspecific abnormal finding of lung field; B96.29 Other Escherichia coli [E. coli] as the cause of diseases classified elsewhere; K52.89 Other specified noninfective gastroenteritis and colitis; Z87.442 Personal history of urinary calculi
CPT/HCPCS: 36415; 71045-TC; 74019-TC; 74021-TC; 74177-TC; 76700-TC; 80048; 80053; 81003; 82150; 83605; 83690; 83735; 84100; 85025; 85027; 85610; 86140; 86850; 86900; 86901; 87086; 87186; 93005; 93010; 99285-25; J1644

== ENCOUNTER 2022-05-22 19:39 | Inpatient (IN) | payer BC ==
[2022-05-22] MEDS ORDERED: morphine CARPU-JECT 2 MG/1 ML DISP.SYRIN IVPUSH ONE (20:59)
[2022-05-22 21:16] LABS: BASO % 0.3 % (0-2.0); EOS % 0.4 % (0-4.5); HEMATOCRIT 33.7 % (32.4-45.2); HEMOGLOBIN 11.1 GM/dL (10.7-15.3); LYMPH % 7.6 % (8-40); MCH 30.6 pg (25.7-33.7); MEAN CELL VOLUME 92.8 fl (80-96); MEAN PLT VOLUME 8.5 fl (7.5-11.1); MONO % 5.9 % (3.8-10.2); NEUT % 85.8 % (42.8-82.8); PLATELET COUNT 155 10^3/uL (134-434); RBC 3.64 M/mm3 (3.60-5.2); RDW 13.4 % (11.6-15.6); WHITE BLOOD COUNT 10.9 K/mm3 (4.0-10.0)
[2022-05-22 21:25] LABS: INR 1.21 (0.83-1.09); PROTHROMBIN TIME (PATIENT) 13.9 SEC (9.7-13.0)
[2022-05-22 21:28] LABS: ACTIVATED PTT 28.7 SECONDS (25.2-36.5)
[2022-05-22 21:37] LABS: CALCIUM 9.4 mg/dL (8.5-10.1)
[2022-05-22 21:38] LABS: ALBUMIN 3.7 g/dl (3.4-5.0); BLOOD UREA NITROGEN 22.2 mg/dL (7-18)
[2022-05-22 21:41] LABS: CREATININE 0.7 mg/dL (0.55-1.3)
[2022-05-22 21:43] LABS: BILIRUBIN,TOTAL 0.7 mg/dL (0.2-1); TOT PROT 6.7 g/dl (6.4-8.2)
[2022-05-22] MEDS ORDERED: DEXTROSE 5%-NORMAL SALINE 1,000 ML IV SCH (23:45)
[2022-05-22] MEDS ORDERED: DOCUSATE SODIUM 100 MG CAPSULE (FP) PO PRN (23:47)
[2022-05-22] MEDS ORDERED: ACETAMINOPHEN 1000 MG/100 ML BAG IVPB PRN (23:58)
[2022-05-23] MEDS ORDERED: ACETAMINOPHEN INJECTION 100 ML IVPB ONE (01:44)
[2022-05-23 02:57] VITALS: BMI 21.5
[2022-05-23 09:23] LABS: BASO % 0.2 % (0-2.0); HEMATOCRIT 26.5 % (32.4-45.2); HEMOGLOBIN 8.9 GM/dL (10.7-15.3); LYMPH % 9.7 % (8-40); MCH 31.2 pg (25.7-33.7); MCHC 33.6 g/dl (32.0-36.0); MEAN CELL VOLUME 92.9 fl (80-96); MEAN PLT VOLUME 8.9 fl (7.5-11.1); MONO % 8.5 % (3.8-10.2); NEUT % 81.6 % (42.8-82.8); PLATELET COUNT 145 10^3/uL (134-434); RBC 2.85 M/mm3 (3.60-5.2); RDW 13.1 % (11.6-15.6); WHITE BLOOD COUNT 9.2 K/mm3 (4.0-10.0)
[2022-05-23 09:36] LABS: CALCIUM 8.7 mg/dL (8.5-10.1)
[2022-05-23 09:37] LABS: BLOOD UREA NITROGEN 24.8 mg/dL (7-18); MAGNESIUM 1.9 mg/dL (1.8-2.4)
[2022-05-23 09:38] LABS: PHOSPHOROUS 3.6 mg/dL (2.5-4.9)
[2022-05-23 09:40] LABS: CREATININE 0.9 mg/dL (0.55-1.3)
[2022-05-23] MEDS ORDERED: amLODIPine BESYLATE 2.5 MG TABLET (FP) PO SCH (10:00)
[2022-05-23] MEDS ORDERED: PARoxetine HCL 10 MG TABLET PO SCH (10:00)
[2022-05-23] MEDS ORDERED: PROPOFOL 20 ML ONE (12:23)
[2022-05-23] MEDS ORDERED: ENALAPRILAT DIHYDRATE 2.5 MG/2 ML VIAL IVPB ONE (12:25)
[2022-05-23] MEDS ORDERED: VASOPRESSIN 20 UNITS/ML VIAL IV ONE ×2 (12:27→12:30)
[2022-05-23] MEDS ORDERED: BUPIVACAINE HCL/PF 0.5% (5MG/ML) 10 ML VIAL ONE (12:33)
[2022-05-23] MEDS ORDERED: ceFAZolin SODIUM 1 GM VIAL IVPB ONE (13:10)
[2022-05-23] MEDS ORDERED: ceFAZolin SODIUM 1 GM VIAL ONE (13:13)
[2022-05-23] MEDS ORDERED: ONDANSETRON 4 MG/2 ML VIAL ONE (13:35)
[2022-05-23] MEDS ORDERED: LACTATED RINGERS SOLUTION 1,000 ML IV SCH ×3 (14:00→14:02)
[2022-05-23] MEDS ORDERED: ACETAMINOPHEN 1000 MG/100 ML BAG IVPB PRN (14:02)
[2022-05-23] MEDS ORDERED: DOCUSATE SODIUM 100 MG CAPSULE (FP) PO PRN (14:02)
[2022-05-23] MEDS: DEXTROSE 5%-NORMAL SALINE 1,000 ML IV SCH (15:45)
[2022-05-23] MEDS: LACTATED RINGERS SOLUTION 1,000 ML IV SCH (15:46)
[2022-05-23] MEDS: CEFAZOLIN 1 GM in DEXTROSE 5%-WATER - 50 ML IVPB SCH (17:32)
[2022-05-23] MEDS ORDERED: CEFAZOLIN 1 GM/D5W 50 ML IVPB SCH (18:00)
[2022-05-23] MEDS: ATORVASTATIN CA 40 MG TABLET (FP) PO SCH (21:49)
[2022-05-23] MEDS ORDERED: ATORVASTATIN CA 40 MG TABLET (FP) PO SCH (22:00)
[2022-05-23] MEDS ORDERED: ACETAMINOPHEN 325 MG TABLET (FP) PO PRN ×2 (23:47)
[2022-05-24] MEDS: MELATONIN 5 MG TABLETS PO PRN ×2 (01:35→23:24)
[2022-05-24] MEDS: CEFAZOLIN 1 GM in DEXTROSE 5%-WATER - 50 ML IVPB SCH (01:43)
[2022-05-24] MEDS ORDERED: HALOPERIDOL LACTATE 5 MG/ML IM ONE (01:44)
[2022-05-24] MEDS: DEXTROSE 5%-NORMAL SALINE 1,000 ML IV SCH (09:45)
[2022-05-24] MEDS: amLODIPine BESYLATE 2.5 MG TABLET (FP) PO SCH (10:00)
[2022-05-24] MEDS: ENOXAPARIN NA (PORCINE) 40 MG/0.4 ML DISP.SYRIN SQ SCH (10:00)
[2022-05-24] MEDS ORDERED: ENOXAPARIN NA (PORCINE) 40 MG/0.4 ML DISP.SYRIN SQ SCH (10:00)
[2022-05-24 10:59] LABS: CREATININE 0.8 mg/dL (0.55-1.3)
[2022-05-24 11:01] LABS: ALBUMIN 2.9 g/dl (3.4-5.0); BILIRUBIN,TOTAL 0.5 mg/dL (0.2-1); BLOOD UREA NITROGEN 22.8 mg/dL (7-18); CALCIUM 8.4 mg/dL (8.5-10.1); TOT PROT 5.4 g/dl (6.4-8.2)
[2022-05-24] MEDS: LACTATED RINGERS SOLUTION 1,000 ML IV SCH (14:00)
[2022-05-24] MEDS: ATORVASTATIN CA 40 MG TABLET (FP) PO SCH (21:25)
[2022-05-25 09:34] LABS: BASO % 0.2 % (0-2.0); HEMATOCRIT 18.3 % (32.4-45.2); LYMPH % 11.8 % (8-40); MCH 31.4 pg (25.7-33.7); MCHC 34.1 g/dl (32.0-36.0); MEAN CELL VOLUME 92.2 fl (80-96); MEAN PLT VOLUME 8.6 fl (7.5-11.1); MONO % 11.2 % (3.8-10.2); NEUT % 76.8 % (42.8-82.8); PLATELET COUNT 108 10^3/uL (134-434); RBC 1.99 M/mm3 (3.60-5.2); RDW 13.1 % (11.6-15.6); WHITE BLOOD COUNT 6.9 K/mm3 (4.0-10.0)
[2022-05-25 09:41] LABS: HEMOGLOBIN 6.2 GM/dL (10.7-15.3)
[2022-05-25 10:34] LABS: HEMATOCRIT 18.1 % (32.4-45.2); MCH 31.1 pg (25.7-33.7); MCHC 33.9 g/dl (32.0-36.0); MEAN CELL VOLUME 91.8 fl (80-96); MEAN PLT VOLUME 8.4 fl (7.5-11.1); PLATELET COUNT 111 10^3/uL (134-434); RBC 1.97 M/mm3 (3.60-5.2); RDW 13.3 % (11.6-15.6); WHITE BLOOD COUNT 7.8 K/mm3 (4.0-10.0)
[2022-05-25 10:48] LABS: HEMOGLOBIN 6.1 GM/dL (10.7-15.3)
[2022-05-25] MEDS: ENOXAPARIN NA (PORCINE) 40 MG/0.4 ML DISP.SYRIN SQ SCH (11:10)
[2022-05-25] MEDS: amLODIPine BESYLATE 2.5 MG TABLET (FP) PO SCH (11:10)
[2022-05-25 12:37] LABS: HEMATOCRIT 18.1 % (32.4-45.2); MCH 31.5 pg (25.7-33.7); MCHC 34.1 g/dl (32.0-36.0); MEAN CELL VOLUME 92.6 fl (80-96); MEAN PLT VOLUME 8.8 fl (7.5-11.1); PLATELET COUNT 109 10^3/uL (134-434); RBC 1.95 M/mm3 (3.60-5.2); RDW 13.2 % (11.6-15.6); WHITE BLOOD COUNT 7.3 K/mm3 (4.0-10.0)
[2022-05-25 12:44] LABS: HEMOGLOBIN 6.2 GM/dL (10.7-15.3)
[2022-05-25] MEDS ORDERED: FUROSEMIDE 40 MG/4 ML INJECTABLE VIAL IVPUSH ONE (18:00)
[2022-05-25 20:03] LABS: URINE APPEARANCE CLEAR; URINE BILIRUBIN NEGATIVE (NEGATIVE); URINE COLOR YELLOW; URINE GLUCOSE (UA) NEGATIVE (NEGATIVE); URINE KETONE NEGATIVE (NEGATIVE); URINE LEUK ESTERASE NEGATIVE (NEGATIVE); URINE NITRITE NEGATIVE (NEGATIVE); URINE PROTEIN TRACE (NEGATIVE)
[2022-05-25] MEDS: LACTATED RINGERS SOLUTION 1,000 ML IV SCH (21:26)
[2022-05-25] MEDS: ATORVASTATIN CA 40 MG TABLET (FP) PO SCH ×2 (21:31→21:37)
[2022-05-26] MEDS: amLODIPine BESYLATE 2.5 MG TABLET (FP) PO SCH (09:02)
[2022-05-26] MEDS ORDERED: ACETAMINOPHEN 1000 MG/100 ML BAG IVPB PRN (09:02)
[2022-05-26] MEDS ORDERED: ACETAMINOPHEN 325 MG TABLET (FP) PO PRN (09:02)
[2022-05-26 09:44] LABS: BASO % 0.2 % (0-2.0); EOS % 0.4 % (0-4.5); HEMATOCRIT 24.7 % (32.4-45.2); HEMOGLOBIN 8.5 GM/dL (10.7-15.3); LYMPH % 15.8 % (8-40); MCH 30.5 pg (25.7-33.7); MCHC 34.4 g/dl (32.0-36.0); MEAN CELL VOLUME 88.6 fl (80-96); MEAN PLT VOLUME 8.1 fl (7.5-11.1); MONO % 11.9 % (3.8-10.2); NEUT % 71.7 % (42.8-82.8); PLATELET COUNT 112 10^3/uL (134-434); RBC 2.79 M/mm3 (3.60-5.2); RDW 14.4 % (11.6-15.6); WHITE BLOOD COUNT 6.8 K/mm3 (4.0-10.0)
[2022-05-26 11:05] LABS: ALBUMIN 2.6 g/dl (3.4-5.0); BILIRUBIN,TOTAL 1.2 mg/dL (0.2-1); BLOOD UREA NITROGEN 26.2 mg/dL (7-18); CALCIUM 8.5 mg/dL (8.5-10.1); CREATININE 0.6 mg/dL (0.55-1.3)
[2022-05-26 15:53] VITALS: RESP 18
[2022-05-26] MEDS: ATORVASTATIN CA 40 MG TABLET (FP) PO SCH (23:04)
[2022-05-27] MEDS: ENOXAPARIN NA (PORCINE) 40 MG/0.4 ML DISP.SYRIN SQ SCH (10:02)
[2022-05-27] MEDS: amLODIPine BESYLATE 2.5 MG TABLET (FP) PO SCH (10:02)
[2022-05-27 10:18] LABS: HEMATOCRIT 28.3 % (32.4-45.2); HEMOGLOBIN 9.6 GM/dL (10.7-15.3); MCH 30.4 pg (25.7-33.7); MCHC 34.1 g/dl (32.0-36.0); MEAN CELL VOLUME 89.1 fl (80-96); MEAN PLT VOLUME 8.2 fl (7.5-11.1); PLATELET COUNT 152 10^3/uL (134-434); RBC 3.17 M/mm3 (3.60-5.2); RDW 14.4 % (11.6-15.6); WHITE BLOOD COUNT 6.8 K/mm3 (4.0-10.0)
[2022-05-27 11:00] LABS: CALCIUM 8.5 mg/dL (8.5-10.1)
[2022-05-27 11:03] LABS: ALBUMIN 2.6 g/dl (3.4-5.0)
[2022-05-27 11:05] LABS: BLOOD UREA NITROGEN 24.4 mg/dL (7-18)
[2022-05-27 11:06] LABS: CREATININE 0.5 mg/dL (0.55-1.3)
[2022-05-27 11:07] LABS: TOT PROT 5.4 g/dl (6.4-8.2)
[2022-05-27 11:08] LABS: BILIRUBIN,TOTAL 1.5 mg/dL (0.2-1)
[2022-05-27] MEDS: ATORVASTATIN CA 40 MG TABLET (FP) PO SCH (21:37)
[2022-05-28] MEDS ORDERED: POTASSIUM CHLORIDE ORAL LIQUID 20 MEQ/15 ML PO ONE (08:41)
[2022-05-28] MEDS: amLODIPine BESYLATE 2.5 MG TABLET (FP) PO SCH (09:44)
[2022-05-28] MEDS: ENOXAPARIN NA (PORCINE) 40 MG/0.4 ML DISP.SYRIN SQ SCH (09:45)
[2022-05-28 11:49] VITALS: BP 143/68; PULSE 70; TEMP 97.9
== END 2022-05-28 15:34 | DRG 481 ==
LOC: JER 19:39 → JERBED 22:29 → J6S 05-23 02:18
PROVIDERS: ADMIT Internal Medicine; ATTEND Internal Medicine
PROC: 0QS704Z Reposition Left Upper Femur with Internal Fixation Device, Open Approach (ICD-10-PCS; principal; 2022-05-23 13:00)
PROC: 30233N1 Transfusion of Nonautologous Red Blood Cells into Peripheral Vein, Percutaneous Approach (ICD-10-PCS; 2022-05-25)
DX: S72.142A Displaced intertrochanteric fracture of left femur, initial encounter for closed fracture (principal); D62 Acute posthemorrhagic anemia; S72.22XA Displaced subtrochanteric fracture of left femur, initial encounter for closed fracture; I10 Essential (primary) hypertension; H35.30 Unspecified macular degeneration; N20.0 Calculus of kidney; R33.9 Retention of urine, unspecified; R45.1 Restlessness and agitation; E78.5 Hyperlipidemia, unspecified; G89.18 Other acute postprocedural pain; Y92.098 Other place in other non-institutional residence as the place of occurrence of the external cause; W18.39XA Other fall on same level, initial encounter
CPT/HCPCS: 0241U-QW; 36415; 36430; 70450-TC; 71045-TC-FY; 72170-TC-FY; 73502-TC-LT-FY; 73562-TC-LT-FY; 76000-TC-FY; 80048; 80053; 81003; 83735; 84100; 84484; 85025; 85027; 85610; 85730; 86850; 86900; 86901; 86922; 87086; 93005; 93010; 94760; 97116-GP; 97161-GP; 99285-25; C1713; C1889; C9803-CS; P9058; U0003; U0005